=== PATIENT | male | born 1965 | race African-American/Black ===

== ENCOUNTER 2016-09-05 20:29 | Inpatient (IN) | payer MEDICAID, OTHER ==
[~2016-09-05] VITALS: Ht 121.9 cm; Wt 57.2 kg
[~2016-09-05 20:29] MED LIST: VIC GT
[2016-09-05] MEDS ORDERED: NITROGLYCERIN OINT 1GM/INCH UDPKT TD STA (22:01)
[2016-09-05] MEDS ORDERED: ASPIRIN 325MG TABLET PO ONE (22:15)
[2016-09-05 23:02] LABS: BASOPHILS % 0.8 % (0.0-2.0); EOSINOPHILS % 2.2 % (0.0-5.0); HEMATOCRIT. 39.5 % (42.0-52.0); HEMOGLOBIN. 12.9 g/dL (14.0-18.0); LYMPHOCYTES % 17.2 % (20.0-50.0); MEAN CORPUSCULAR HEMOGLOBIN 30.5 pg (28.0-32.0); MEAN CORPUSCULAR VOLUME 93.3 fL (80.0-94.0); MEAN PLATELET VOLUME 7.3 fl (7.4-10.4); MONOCYTES % 10.6 % (2.0-8.0); NEUTROPHILS % 69.2 % (40.0-76.0); PLATELET 136 x1000/uL (130-400); RED BLOOD CELL COUNT 4.24 mill/uL (4.7-6.1); RED CELL DISTRIBUTION WIDTH 18.1 % (11.6-14.6)
[2016-09-05] MEDS ORDERED: ENOXAPARIN 40MG/0.4ML SYR SUBCUT SCH (23:30)
[2016-09-05] MEDS ORDERED: MAGNESIUM/ALUMINUM HYDROXIDE/SIMETHICONE 30ML UDC PO PRN (23:30)
[2016-09-05] MEDS ORDERED: IPRATROPIUM/ALBUTEROL 0.5-3(2.5)MG/3ML NEB INH PRN (23:30)
[2016-09-05] MEDS ORDERED: HYDROCODONE/APAP 7.5/325MG 1 TAB TABLET PO PRN (23:30)
[2016-09-05] MEDS ORDERED: GUAIFENESIN 200MG/10ML SUGAR FREE UDC PO PRN (23:30)
[2016-09-05] MEDS ORDERED: DOCUSATE SODIUM 100MG CAPSULE PO PRN (23:30)
[2016-09-05] MEDS ORDERED: CLONIDINE 0.1MG TABLET PO PRN (23:30)
[2016-09-05] MEDS ORDERED: NA PHOS,M-B/NA PHOS,DI-BA ENEMA 118ML PR PRN (23:30)
[2016-09-05] MEDS ORDERED: LORAZEPAM 2MG/ML CPJ IV PRN (23:30)
[2016-09-06] LABS: INR 1.1; PARTIAL THROMBOPLASTIN TIME 35.8 sec (24.0-34.0); PROTHROMBIN TIME 11.9 sec
[2016-09-06 00:04] LABS: CARBON DIOXIDE 25 mEq/L (21-32); CHLORIDE 96 mEq/L (98-107)
[2016-09-06 00:05] LABS: TROPONIN I < 0.02 ng/mL (0.00-0.04)
[2016-09-06 00:45] LABS: GLUCOSE URINE NEGATIVE (NEGATIVE); KETONES URINE TRACE (NEGATIVE); LEUKOCYTE ESTERASE URINE 3+ (NEGATIVE); NITRITE URINE POSITIVE (NEGATIVE); OCCULT BLOOD URINE 3+ (NEGATIVE); PH URINE 7.5 (4.5-8.0); PROTEIN URINE 4+ (NEGATIVE)
[2016-09-06 00:49] LABS: CLARITY URINE CLOUDY (CLEAR); COLOR URINE BLOODY (YELLOW)
[2016-09-06] MEDS ORDERED: CEFTRIAXONE 1 G PREMIX 50 ML IV ONE (01:30)
[2016-09-06] MEDS: DIPHENHYDRAMINE 50MG/ML VIAL IV PRN (01:59)
[2016-09-06] MEDS: ONDANSETRON HCL 4MG/2ML VIAL IV PRN (07:12)
[2016-09-06 08:22] LABS: BASOPHILS % 0.5 % (0.0-2.0); EOSINOPHILS % 1.4 % (0.0-5.0); HEMATOCRIT. 39.4 % (42.0-52.0); HEMOGLOBIN. 12.5 g/dL (14.0-18.0); MEAN CORPUSCULAR HEMOGLOBIN 30.2 pg (28.0-32.0); MEAN CORPUSCULAR VOLUME 95.4 fL (80.0-94.0); NEUTROPHILS % 75.1 % (40.0-76.0); RED BLOOD CELL COUNT 4.13 mill/uL (4.7-6.1); RED CELL DISTRIBUTION WIDTH 17.7 % (11.6-14.6)
[2016-09-06] MEDS ORDERED: MIDODRINE HCL 2.5MG TABLET PO SCH (08:30)
[2016-09-06 08:44] LABS: CARBON DIOXIDE 26 mEq/L (21-32); CHLORIDE 95 mEq/L (98-107); HDL CHOLESTEROL 38 mg/dL (40-59); LDL CHOLESTEROL 66 mg/dL (5-100); T4 FREE 0.93 ng/dL (0.76-1.46)
[2016-09-06] MEDS ORDERED: ASPIRIN 81MG EC TABLET PO SCH (09:00)
[2016-09-06] MEDS: ACETAMINOPHEN 325MG TABLET PO PRN (10:04)
[2016-09-06 10:42] LABS: T4 FREE 0.91 ng/dL (0.76-1.46)
[2016-09-06 11:30] VITALS: BP 92/55
[2016-09-06] MEDS: ENOXAPARIN 30MG/0.3ML SYR SUBCUT SCH (14:16)
[2016-09-06] MEDS: ASPIRIN 81MG TABLET PO SCH (14:16)
[2016-09-06 15:53] LABS: BG BASE EXCESS -2.2 mmol/L (-2.0-2.0); BG CARBOXYHEMOGLOBIN 1.1 % (0.5-1.5); BG HCO3 ACT 26.8 mmol/L (22.0-26.0); BG METHEMOGLOBIN 0.6 % (0.0-1.5); BG OXYHEMOGLOBIN 96.3 % (94.0-97.0); BG PCO2 67.4 mmHg (35.0-45.0); BG PH 7.218 (7.350-7.450); BG PO2 137.8 mmHg (75.0-100.0); BG SAMPLE SITE LEFT BRACHIAL; BG TOTAL HEMOGLOBIN 12.9 g/dL (12.0-18.0); BG VENT MODE NASAL CANNULA
[2016-09-06] MEDS ORDERED: LEVOFLOXACIN 500MG PREMIX 100 ML IV NR (17:30)
[2016-09-06 20:00] VITALS: BP 91/64
[2016-09-06] MEDS: IPRATROPIUM/ALBUTEROL 0.5-3(2.5)MG/3ML NEB HHN SCH (22:09)
[2016-09-06] MEDS ORDERED: SODIUM CHLORIDE 0.9% 500 ML IV ONE (23:00)
[2016-09-06 23:45] LABS: CREATINE KINASE MB FRACTION < 0.5 ng/mL (0.5-3.6); TROPONIN I < 0.02 ng/mL (0.00-0.04)
[2016-09-06 23:47] LABS: CREATINE KINASE 52 IU/L (39-308)
[2016-09-07] VITALS (26 sets, daily range): BP systolic 72–109; BP diastolic 35–60
[2016-09-07] MEDS: IPRATROPIUM/ALBUTEROL 0.5-3(2.5)MG/3ML NEB HHN SCH ×4 (03:23→20:14)
[2016-09-07 07:55] LABS: CREATINE KINASE MB FRACTION 1.2 ng/mL (0.5-3.6); PHOSPHORUS 7.9 mg/dL (2.5-4.9); TROPONIN I 0.07 ng/mL (0.00-0.04)
[2016-09-07] MEDS: ASPIRIN 81MG TABLET PO SCH (08:48)
[2016-09-07] MEDS: ENOXAPARIN 30MG/0.3ML SYR SUBCUT SCH (08:48)
[2016-09-07 08:54] LABS: HEMATOCRIT. 33.7 % (42.0-52.0); HEMOGLOBIN. 10.6 g/dL (14.0-18.0); MEAN CORPUSCULAR HEMOGLOBIN 29.9 pg (28.0-32.0); MEAN PLATELET VOLUME 7.9 fl (7.4-10.4); PLATELET 121 x1000/uL (130-400); RED BLOOD CELL COUNT 3.54 mill/uL (4.7-6.1); RED CELL DISTRIBUTION WIDTH 17.6 % (11.6-14.6)
[2016-09-07 09:04] LABS: HEPATITIS A AB IGM NEGATIVE (NEGATIVE); HEPATITIS B CORE AB IGM NEGATIVE; HEPATITIS B SURFACE ANTIGEN NEGATIVE
[2016-09-07 10:05] LABS: NEUTROPHILS % 73.6 % (40.0-76.0)
[2016-09-07 10:06] LABS: BASOPHILS % 0.7 % (0.0-2.0); EOSINOPHILS % 2.1 % (0.0-5.0); LYMPHOCYTES % 12.4 % (20.0-50.0); MONOCYTES % 11.2 % (2.0-8.0)
[2016-09-07] MEDS ORDERED: SODIUM CHLORIDE 0.9% 500 ML IV NR (17:00)
[2016-09-07 18:16] LABS: BG CARBOXYHEMOGLOBIN 0.2 % (0.5-1.5); BG DEOXYHEMOGLOBIN 7.8 % (0.0-5.0); BG FRACTION INSPIRED OXYGEN 21; BG METHEMOGLOBIN 1.5 % (0.0-1.5); BG OXYGEN SATURATION 92.1 % (92.0-98.5); BG OXYHEMOGLOBIN 90.5 % (94.0-97.0); BG PCO2 49.3 mmHg (35.0-45.0); BG PH 7.268 (7.350-7.450); BG SAMPLE SITE LEFT BRACHIAL; BG VENT MODE ROOM AIR
[2016-09-07 20:53] LABS: CREATINE KINASE MB FRACTION 1.4 ng/mL (0.5-3.6); TROPONIN I 0.16 ng/mL (0.00-0.04)
[2016-09-07] MEDS: ONDANSETRON HCL 4MG/2ML VIAL IV PRN (21:47)
[2016-09-07 23:05] LABS: BG BASE EXCESS -3.8 mmol/L (-2.0-2.0); BG CARBOXYHEMOGLOBIN 0.9 % (0.5-1.5); BG DEOXYHEMOGLOBIN 1.4 % (0.0-5.0); BG FRACTION INSPIRED OXYGEN 30; BG METHEMOGLOBIN 0.6 % (0.0-1.5); BG OXYGEN SATURATION 98.6 % (92.0-98.5); BG OXYHEMOGLOBIN 97.1 % (94.0-97.0); BG PCO2 49.6 mmHg (35.0-45.0); BG PH 7.284 (7.350-7.450); BG PO2 142.7 mmHg (75.0-100.0); BG SAMPLE SITE RIGHT RADIAL; BG TOTAL HEMOGLOBIN 11.3 g/dL (12.0-18.0); BG VENT MODE MASK - BIPAP
[2016-09-07] MEDS ORDERED: SODIUM BICARBONATE 8.4% 1 MEQ/ML 50ML SYR IV ONE (23:30)
[2016-09-07] MEDS: PHENYLEPHRINE 20 MG in DEXT 5% WATER 248 ML IV PRN (23:52)
[2016-09-08] VITALS (84 sets, daily range): BP systolic 77–136; BP diastolic 31–94
[2016-09-08] MEDS: DIPHENHYDRAMINE 50MG/ML VIAL IV PRN ×2 (00:25→19:29)
[2016-09-08] MEDS: IPRATROPIUM/ALBUTEROL 0.5-3(2.5)MG/3ML NEB HHN SCH ×4 (01:50→20:36)
[2016-09-08] MEDS: PHENYLEPHRINE 20 MG in DEXT 5% WATER 248 ML IV PRN ×2 (08:35→21:18)
[2016-09-08 10:48] LABS: BASOPHILS % 0.8 % (0.0-2.0); EOSINOPHILS % 3.7 % (0.0-5.0); HEMATOCRIT. 30.6 % (42.0-52.0); HEMOGLOBIN. 9.5 g/dL (14.0-18.0); LYMPHOCYTES % 17.4 % (20.0-50.0); MEAN CORPUSCULAR HEMOGLOBIN 29.4 pg (28.0-32.0); MEAN CORPUSCULAR VOLUME 94.6 fL (80.0-94.0); MEAN PLATELET VOLUME 7.3 fl (7.4-10.4); MONOCYTES % 9.6 % (2.0-8.0); NEUTROPHILS % 68.5 % (40.0-76.0); PLATELET 93 x1000/uL (130-400); RED BLOOD CELL COUNT 3.24 mill/uL (4.7-6.1); RED CELL DISTRIBUTION WIDTH 17.6 % (11.6-14.6)
[2016-09-08] MEDS: ASPIRIN 81MG TABLET PO SCH (11:37)
[2016-09-08] MEDS: ENOXAPARIN 30MG/0.3ML SYR SUBCUT SCH ×2 (11:38→11:41)
[2016-09-08] MEDS ORDERED: LEVOFLOXACIN 250MG PREMIX 50 ML IV SCH (18:00)
[2016-09-08] MEDS: HYDROMORPHONE HCL/PF 2MG/ML CPJ IV PRN (20:09)
[2016-09-09] VITALS (88 sets, daily range): BP systolic 80–147; BP diastolic 21–86
[2016-09-09] MEDS: IPRATROPIUM/ALBUTEROL 0.5-3(2.5)MG/3ML NEB HHN SCH ×4 (01:39→20:44)
[2016-09-09] MEDS: HYDROMORPHONE HCL/PF 2MG/ML CPJ IV PRN ×3 (01:55→18:47)
[2016-09-09 05:41] LABS: BASOPHILS % 1.2 % (0.0-2.0); EOSINOPHILS % 3.9 % (0.0-5.0); HEMOGLOBIN. 9.5 g/dL (14.0-18.0); LYMPHOCYTES % 22.6 % (20.0-50.0); MEAN CORPUSCULAR HEMOGLOBIN 29.4 pg (28.0-32.0); MEAN PLATELET VOLUME 8.6 fl (7.4-10.4); MONOCYTES % 11.7 % (2.0-8.0); NEUTROPHILS % 60.6 % (40.0-76.0); PLATELET 102 x1000/uL (130-400); RED BLOOD CELL COUNT 3.23 mill/uL (4.7-6.1); RED CELL DISTRIBUTION WIDTH 17.6 % (11.6-14.6)
[2016-09-09] MEDS: PHENYLEPHRINE 20 MG in DEXT 5% WATER 248 ML IV PRN (06:38)
[2016-09-09] MEDS: ASPIRIN 81MG TABLET PO SCH (08:33)
[2016-09-09] MEDS ORDERED: LEVOFLOXACIN 500MG PREMIX 100 ML IV SCH (08:45)
[2016-09-09] MEDS ORDERED: VANCOMYCIN 1 G PREMIX 200 ML IV SCH (12:30)
[2016-09-09] MEDS ORDERED: AMIKACIN 500MG in SODIUM CHLORIDE 0.9% 100ML IV SCH (15:00)
[2016-09-09] MEDS: MIDODRINE HCL 5MG TABLET PO SCH ×2 (15:26→17:22)
[2016-09-09] MEDS ORDERED: SEVELAMER CARBONATE 800 MG TABLET PO SCH (18:20)
[2016-09-09] MEDS: EPOETIN ALFA 10000UNITS/ML VIAL SUBCUT SCH (20:19)
[2016-09-09] MEDS: SEVELAMER CARBONATE 800 MG TABLET PO SCH (20:35)
[2016-09-10] VITALS (36 sets, daily range): BP systolic 58–146; BP diastolic 38–88
[2016-09-10] MEDS: HYDROMORPHONE HCL/PF 2MG/ML CPJ IV PRN ×4 (01:41→22:08)
[2016-09-10] MEDS: IPRATROPIUM/ALBUTEROL 0.5-3(2.5)MG/3ML NEB HHN SCH ×4 (02:31→20:51)
[2016-09-10 08:57] LABS: BASOPHILS % 0.8 % (0.0-2.0); EOSINOPHILS % 3.3 % (0.0-5.0); HEMATOCRIT. 30.9 % (42.0-52.0); HEMOGLOBIN. 9.5 g/dL (14.0-18.0); LYMPHOCYTES % 20.9 % (20.0-50.0); MEAN CORPUSCULAR HEMOGLOBIN 29.6 pg (28.0-32.0); MEAN CORPUSCULAR VOLUME 96.3 fL (80.0-94.0); MEAN PLATELET VOLUME 7.1 fl (7.4-10.4); MONOCYTES % 14.2 % (2.0-8.0); NEUTROPHILS % 60.8 % (40.0-76.0); PLATELET 78 x1000/uL (130-400); RED BLOOD CELL COUNT 3.21 mill/uL (4.7-6.1); RED CELL DISTRIBUTION WIDTH 17.2 % (11.6-14.6)
[2016-09-10] MEDS: SEVELAMER CARBONATE 800 MG TABLET PO SCH ×2 (08:57→18:39)
[2016-09-10] MEDS: ASPIRIN 81MG TABLET PO SCH (08:58)
[2016-09-10] MEDS: MIDODRINE HCL 5MG TABLET PO SCH ×3 (08:58→18:38)
[2016-09-10] MEDS: ONDANSETRON HCL 4MG/2ML VIAL IV PRN (18:39)
[2016-09-11] VITALS (50 sets, daily range): BP systolic 39–146; BP diastolic 18–78
[2016-09-11] MEDS: IPRATROPIUM/ALBUTEROL 0.5-3(2.5)MG/3ML NEB HHN SCH ×4 (00:52→20:07)
[2016-09-11 06:01] LABS: BASOPHILS % 1.2 % (0.0-2.0); EOSINOPHILS % 3.2 % (0.0-5.0); HEMATOCRIT. 27.3 % (42.0-52.0); HEMOGLOBIN. 8.5 g/dL (14.0-18.0); LYMPHOCYTES % 20.8 % (20.0-50.0); MEAN CORPUSCULAR HEMOGLOBIN 29.5 pg (28.0-32.0); MEAN CORPUSCULAR VOLUME 94.7 fL (80.0-94.0); NEUTROPHILS % 62.8 % (40.0-76.0); PLATELET 94 x1000/uL (130-400); RED BLOOD CELL COUNT 2.89 mill/uL (4.7-6.1); RED CELL DISTRIBUTION WIDTH 17.1 % (11.6-14.6)
[2016-09-11] MEDS: DIPHENHYDRAMINE 50MG/ML VIAL IV PRN (08:39)
[2016-09-11] MEDS: SEVELAMER CARBONATE 800 MG TABLET PO SCH ×2 (08:39→18:23)
[2016-09-11] MEDS: ASPIRIN 81MG TABLET PO SCH (08:39)
[2016-09-11] MEDS: PHENYLEPHRINE 20 MG in DEXT 5% WATER 248 ML IV PRN (09:44)
[2016-09-11] MEDS: MIDODRINE HCL 5MG TABLET PO SCH ×2 (13:42→18:23)
[2016-09-11] MEDS: HYDROCODONE/ACETAMINOPHEN 5/325MG TABLET PO PRN (15:33)
[2016-09-11] MEDS: EPOETIN ALFA 10000UNITS/ML VIAL SUBCUT SCH (21:05)
[2016-09-12] VITALS (26 sets, daily range): BP systolic 67–148; BP diastolic 33–85
[2016-09-12] MEDS: IPRATROPIUM/ALBUTEROL 0.5-3(2.5)MG/3ML NEB HHN SCH ×4 (02:08→20:49)
[2016-09-12] MEDS: HYDROCODONE/ACETAMINOPHEN 5/325MG TABLET PO PRN (04:00)
[2016-09-12 05:21] LABS: BASOPHILS % 1.1 % (0.0-2.0); EOSINOPHILS % 4.1 % (0.0-5.0); HEMATOCRIT. 26.9 % (42.0-52.0); HEMOGLOBIN. 8.4 g/dL (14.0-18.0); LYMPHOCYTES % 18.5 % (20.0-50.0); MEAN CORPUSCULAR HEMOGLOBIN 29.7 pg (28.0-32.0); MEAN CORPUSCULAR VOLUME 95.6 fL (80.0-94.0); MEAN PLATELET VOLUME 7.5 fl (7.4-10.4); MONOCYTES % 13.5 % (2.0-8.0); NEUTROPHILS % 62.8 % (40.0-76.0); PLATELET 119 x1000/uL (130-400); RED BLOOD CELL COUNT 2.82 mill/uL (4.7-6.1)
[2016-09-12] MEDS: MIDODRINE HCL 5MG TABLET PO SCH ×3 (09:47→17:55)
[2016-09-12] MEDS: SEVELAMER CARBONATE 800 MG TABLET PO SCH ×3 (09:48→20:26)
[2016-09-12] MEDS: ASPIRIN 81MG TABLET PO SCH (10:02)
[2016-09-13] VITALS (7 sets, daily range): BP systolic 93–115; BP diastolic 51–66
[2016-09-13] MEDS: IPRATROPIUM/ALBUTEROL 0.5-3(2.5)MG/3ML NEB HHN SCH ×4 (01:00→20:30)
[2016-09-13] MEDS: MIDODRINE HCL 5MG TABLET PO SCH ×3 (06:54→17:41)
[2016-09-13] MEDS: SEVELAMER CARBONATE 800 MG TABLET PO SCH ×2 (07:40→17:41)
[2016-09-13] MEDS: DIPHENHYDRAMINE 50MG/ML VIAL IV PRN (08:58)
[2016-09-13] MEDS: ASPIRIN 81MG TABLET PO SCH (12:48)
[2016-09-13] MEDS: EPOETIN ALFA 10000UNITS/ML VIAL SUBCUT SCH (21:08)
[2016-09-13] MEDS: HYDROCODONE/APAP 7.5/325MG 1 TAB TABLET PO PRN (21:14)
[2016-09-13] MEDS: DIPHENHYDRAMINE 50MG/ML VIAL IM PRN (21:22)
[2016-09-14] VITALS (70 sets, daily range): BP systolic 52–180; BP diastolic 21–119
[2016-09-14] MEDS: IPRATROPIUM/ALBUTEROL 0.5-3(2.5)MG/3ML NEB HHN SCH ×4 (02:05→19:48)
[2016-09-14] MEDS: ONDANSETRON HCL 4MG/2ML VIAL IV PRN ×2 (02:25→13:15)
[2016-09-14] MEDS: DIPHENHYDRAMINE 50MG/ML VIAL IM PRN ×2 (02:26→08:47)
[2016-09-14] MEDS: MIDODRINE HCL 5MG TABLET PO SCH ×3 (08:46→17:00)
[2016-09-14] MEDS: ASPIRIN 81MG TABLET PO SCH (08:47)
[2016-09-14] MEDS: SEVELAMER CARBONATE 800 MG TABLET PO SCH ×2 (08:47→18:08)
[2016-09-14] MEDS ORDERED: AMIODARONE HCL 150 MG in DEXT 5% WATER 100 ML IV ONE (09:45)
[2016-09-14 10:26] LABS: BASOPHILS % 0.6 % (0.0-2.0); EOSINOPHILS % 0.2 % (0.0-5.0); MEAN CORPUSCULAR HEMOGLOBIN 30.3 pg (28.0-32.0); MEAN CORPUSCULAR VOLUME 101.1 fL (80.0-94.0); MEAN PLATELET VOLUME 8.2 fl (7.4-10.4); MONOCYTES % 7.9 % (2.0-8.0); NEUTROPHILS % 72.3 % (40.0-76.0); PLATELET 233 x1000/uL (130-400); RED CELL DISTRIBUTION WIDTH 18.3 % (11.6-14.6)
[2016-09-14] MEDS ORDERED: AMIODARONE HCL 900 MG in DEXT 5% WATER 482 ML IV PRN (10:30)
[2016-09-14 10:34] LABS: HEMATOCRIT. 17.2 % (42.0-52.0); HEMOGLOBIN. 5.2 g/dL (14.0-18.0)
[2016-09-14] MEDS ORDERED: DEXTROSE 50% WATER 50ML SYRINGE IV ONE (10:37)
[2016-09-14] MEDS ORDERED: SODIUM CHLORIDE 0.9% 250 ML IV ONE (10:45)
[2016-09-14] MEDS ORDERED: DEXTROSE 50% WATER 50ML SYRINGE IV NR (11:15)
[2016-09-14] MEDS ORDERED: OCTREOTIDE ACETATE 100 MCG/ML 1ML IV NR (11:30)
[2016-09-14] MEDS ORDERED: OCTREOTIDE ACETATE 50 MCG/ML 1ML IV NR (11:30)
[2016-09-14] MEDS: OCTREOTIDE 1,000 MCG in SODIUM CHLORIDE 0.9% 98 ML IV SCH (11:32)
[2016-09-14] MEDS: PANTOPRAZOLE 80 MG in SODIUM CHLORIDE 0.9% 100 ML IV SCH ×2 (11:32→20:05)
[2016-09-14] MEDS: PHENYLEPHRINE 40 MG in DEXT 5% WATER 246 ML IV PRN ×2 (11:33→20:08)
[2016-09-14 12:08] LABS: BG BASE EXCESS -10.8 mmol/L (-2.0-2.0); BG CARBOXYHEMOGLOBIN 0.4 % (0.5-1.5); BG DEOXYHEMOGLOBIN 0.2 % (0.0-5.0); BG HCO3 ACT 15.4 mmol/L (22.0-26.0); BG METHEMOGLOBIN 0.2 % (0.0-1.5); BG OXYGEN SATURATION 99.8 % (92.0-98.5); BG OXYHEMOGLOBIN 99.2 % (94.0-97.0); BG PCO2 35.8 mmHg (35.0-45.0); BG PH 7.252 (7.350-7.450); BG PO2 393.4 mmHg (75.0-100.0); BG SAMPLE SITE LEFT RADIAL; BG VENT MODE MASK - NRB
[2016-09-14] MEDS: DEXT 10% WATER 1,000 ML IV SCH (12:15)
[2016-09-14] MEDS ORDERED: DEXTROSE 10% WATER 1,000 ML IV SCH (12:15)
[2016-09-14] MEDS ORDERED: MORPHINE SULFATE 2 MG/ML CPJ (NOT FOR IM USE) IV NR (12:45)
[2016-09-14] MEDS ORDERED: SODIUM CHLORIDE 0.9% 10ML VIAL ONE (13:45)
[2016-09-14] MEDS ORDERED: SIMETHICONE 40 MG/0.6 ML 30ML ONE (13:45)
[2016-09-14] MEDS: HYDROMORPHONE HCL/PF 2MG/ML CPJ IV PRN ×2 (17:05→21:34)
[2016-09-15] VITALS (109 sets, daily range): BP systolic 64–152; BP diastolic 27–91
[2016-09-15 00:26] LABS: BASOPHILS % 0.8 % (0.0-2.0); EOSINOPHILS % 0.4 % (0.0-5.0); HEMOGLOBIN. 8.3 g/dL (14.0-18.0); LYMPHOCYTES % 15.6 % (20.0-50.0); MEAN CORPUSCULAR HEMOGLOBIN 30.2 pg (28.0-32.0); MEAN PLATELET VOLUME 8.1 fl (7.4-10.4); MONOCYTES % 8.6 % (2.0-8.0); NEUTROPHILS % 74.6 % (40.0-76.0); PLATELET 142 x1000/uL (130-400); RED BLOOD CELL COUNT 2.76 mill/uL (4.7-6.1); RED CELL DISTRIBUTION WIDTH 16.4 % (11.6-14.6)
[2016-09-15] MEDS ORDERED: DEXTROSE 50% WATER 50ML SYRINGE IV NR (01:00)
[2016-09-15] MEDS ORDERED: INSULIN REGULAR (HUMULIN R) UD 100 UNITS/ML SYR IV NR (01:30)
[2016-09-15] MEDS: IPRATROPIUM/ALBUTEROL 0.5-3(2.5)MG/3ML NEB HHN SCH ×5 (02:38→20:56)
[2016-09-15] MEDS: OCTREOTIDE 1,000 MCG in SODIUM CHLORIDE 0.9% 98 ML IV SCH (04:13)
[2016-09-15] MEDS: PANTOPRAZOLE 80 MG in SODIUM CHLORIDE 0.9% 100 ML IV SCH ×2 (06:55→17:27)
[2016-09-15] MEDS: HYDROMORPHONE HCL/PF 2MG/ML CPJ IV PRN ×3 (06:57→20:11)
[2016-09-15] MEDS: DIPHENHYDRAMINE 50MG/ML VIAL IV PRN (08:11)
[2016-09-15] MEDS: SEVELAMER CARBONATE 800 MG TABLET PO SCH ×2 (08:20→18:00)
[2016-09-15] MEDS: MIDODRINE HCL 5MG TABLET PO SCH ×3 (08:24→17:00)
[2016-09-15] MEDS: DEXT 10% WATER 1,000 ML IV SCH (12:40)
[2016-09-15 14:14] LABS: BASOPHILS % 0.9 % (0.0-2.0); EOSINOPHILS % 1.5 % (0.0-5.0); HEMATOCRIT. 22.8 % (42.0-52.0); HEMOGLOBIN. 7.6 g/dL (14.0-18.0); LYMPHOCYTES % 12.3 % (20.0-50.0); MEAN CORPUSCULAR HEMOGLOBIN 29.7 pg (28.0-32.0); MEAN CORPUSCULAR VOLUME 89.5 fL (80.0-94.0); MEAN PLATELET VOLUME 7.5 fl (7.4-10.4); NEUTROPHILS % 78.3 % (40.0-76.0); PLATELET 139 x1000/uL (130-400); RED BLOOD CELL COUNT 2.55 mill/uL (4.7-6.1); RED CELL DISTRIBUTION WIDTH 16.4 % (11.6-14.6)
[2016-09-15] MEDS ORDERED: FENTANYL CITRATE/PF 50MCG/ML 2ML VIAL ONE (15:17)
[2016-09-15] MEDS ORDERED: MIDAZOLAM HCL 5 MG/5 ML VIAL ONE (15:18)
[2016-09-15] MEDS ORDERED: FENTANYL CITRATE/PF 50MCG/ML 2ML VIAL IV PRN (15:52)
[2016-09-15] MEDS ORDERED: MIDAZOLAM HCL 5 MG/5 ML VIAL IV PRN (15:52)
[2016-09-15] MEDS ORDERED: FENTANYL CITRATE/PF 50MCG/ML 2ML VIAL IV ONE (15:56)
[2016-09-15] MEDS ORDERED: SORBITOL 70% SOLN 30ML PO NR ×2 (16:09→20:00)
[2016-09-15] MEDS: PHENYLEPHRINE 40 MG in DEXT 5% WATER 246 ML IV PRN (17:27)
[2016-09-15] MEDS: ONDANSETRON HCL 4MG/2ML VIAL IV PRN (21:51)
[2016-09-16] VITALS (144 sets, daily range): BP systolic 41–170; BP diastolic 18–139
[2016-09-16] MEDS: HYDROMORPHONE HCL/PF 2MG/ML CPJ IV PRN ×2 (00:15→04:05)
[2016-09-16] MEDS: IPRATROPIUM/ALBUTEROL 0.5-3(2.5)MG/3ML NEB HHN SCH ×4 (00:34→20:46)
[2016-09-16] MEDS: OCTREOTIDE 1,000 MCG in SODIUM CHLORIDE 0.9% 98 ML IV SCH ×2 (04:02→23:14)
[2016-09-16] MEDS: ONDANSETRON HCL 4MG/2ML VIAL IV PRN (04:03)
[2016-09-16] MEDS: PANTOPRAZOLE 80 MG in SODIUM CHLORIDE 0.9% 100 ML IV SCH ×3 (04:05→23:14)
[2016-09-16 05:40] LABS: HEMATOCRIT. 36.1 % (42.0-52.0); HEMOGLOBIN. 12.1 g/dL (14.0-18.0); MEAN CORPUSCULAR HEMOGLOBIN 29.8 pg (28.0-32.0); MEAN CORPUSCULAR VOLUME 88.6 fL (80.0-94.0); MEAN PLATELET VOLUME 7.4 fl (7.4-10.4); PLATELET 174 x1000/uL (130-400); RED BLOOD CELL COUNT 4.07 mill/uL (4.7-6.1); RED CELL DISTRIBUTION WIDTH 16.8 % (11.6-14.6)
[2016-09-16] MEDS: PHENYLEPHRINE 40 MG in DEXT 5% WATER 246 ML IV PRN ×5 (06:17→23:13)
[2016-09-16 06:55] LABS: BG BASE EXCESS -10.1 mmol/L (-2.0-2.0); BG CARBOXYHEMOGLOBIN 0.7 % (0.5-1.5); BG DEOXYHEMOGLOBIN 1.7 % (0.0-5.0); BG FRACTION INSPIRED OXYGEN 40; BG HCO3 ACT 17.9 mmol/L (22.0-26.0); BG METHEMOGLOBIN 0.4 % (0.0-1.5); BG OXYGEN SATURATION 98.3 % (92.0-98.5); BG OXYHEMOGLOBIN 97.2 % (94.0-97.0); BG PCO2 47.4 mmHg (35.0-45.0); BG PH 7.194 (7.350-7.450); BG SAMPLE SITE LEFT RADIAL; BG TOTAL HEMOGLOBIN 13.3 g/dL (12.0-18.0); BG VENT MODE MASK - SIMPLE
[2016-09-16] MEDS ORDERED: SODIUM BICARBONATE 8.4% 1 MEQ/ML 50ML SYR IV ONE (07:26)
[2016-09-16] MEDS: SEVELAMER CARBONATE 800 MG TABLET PO SCH ×2 (08:20→18:20)
[2016-09-16 08:24] LABS: NUCLEATED RED BLOOD CELLS 3 /100 WBC; PLATELET ESTIMATE NORMAL
[2016-09-16 08:47] LABS: BG BASE EXCESS -2.8 mmol/L (-2.0-2.0); BG CARBOXYHEMOGLOBIN 0.1 % (0.5-1.5); BG DEOXYHEMOGLOBIN 0.8 % (0.0-5.0); BG FRACTION INSPIRED OXYGEN 100; BG HCO3 ACT 24.8 mmol/L (22.0-26.0); BG METHEMOGLOBIN 0.4 % (0.0-1.5); BG OXYGEN SATURATION 99.2 % (92.0-98.5); BG OXYHEMOGLOBIN 98.7 % (94.0-97.0); BG PCO2 55.4 mmHg (35.0-45.0); BG PH 7.268 (7.350-7.450); BG PO2 403.3 mmHg (75.0-100.0); BG SAMPLE SITE RIGHT RADIAL; BG TIDAL VOLUME(mL) 500 mL; BG TOTAL HEMOGLOBIN 12.5 g/dL (12.0-18.0); BG VENT MODE VENT - A/C; BG VENT RATE 12 set
[2016-09-16] MEDS ORDERED: SODIUM BICARBONATE 100 MEQ in DEXTROSE 5% WATER 1,000 ML IV SCH (09:00)
[2016-09-16] MEDS: MIDODRINE HCL 5MG TABLET PO SCH ×3 (09:00→16:28)
[2016-09-16 09:24] LABS: AMMONIA 49 uMol/L (<32)
[2016-09-16] MEDS: MEROPENEM 1,000 MG in SODIUM CHLORIDE 0.9% 100 ML IV SCH ×2 (09:32→20:19)
[2016-09-16] MEDS: METRONIDAZOLE 500 MG PREMIX 100 ML IV SCH ×2 (09:32→20:19)
[2016-09-16 12:16] LABS: BG BASE EXCESS -3.9 mmol/L (-2.0-2.0); BG CARBOXYHEMOGLOBIN 0.3 % (0.5-1.5); BG DEOXYHEMOGLOBIN 2.3 % (0.0-5.0); BG FRACTION INSPIRED OXYGEN 50; BG HCO3 ACT 21.1 mmol/L (22.0-26.0); BG METHEMOGLOBIN 0.3 % (0.0-1.5); BG OXYGEN SATURATION 97.7 % (92.0-98.5); BG OXYHEMOGLOBIN 97.1 % (94.0-97.0); BG PCO2 38.1 mmHg (35.0-45.0); BG PH 7.361 (7.350-7.450); BG PO2 108.7 mmHg (75.0-100.0); BG SAMPLE SITE LEFT RADIAL; BG TIDAL VOLUME(mL) 550 mL; BG TOTAL HEMOGLOBIN 12.2 g/dL (12.0-18.0); BG VENT MODE VENT - A/C; BG VENT RATE 16 set
[2016-09-16] MEDS: PROPOFOL 10MG/ML 100ML 100 ML IV PRN ×2 (14:03→22:02)
[2016-09-16] MEDS ORDERED: STERILE WATER FOR INJECTION 10ML VIAL ONE (14:37)
[2016-09-16] MEDS ORDERED: ETOMIDATE 2MG/ML 10ML VIAL IV ONE (14:37)
[2016-09-16] MEDS ORDERED: VECURONIUM BROMIDE 10 MG/VIAL IV ONE (14:37)
[2016-09-16] MEDS: NOREPINEPHRINE 16 MG in DEXT 5% WATER 234 ML IV PRN (16:00)
[2016-09-16] MEDS: HYDROCODONE/APAP 7.5/325MG 1 TAB TABLET PO PRN (20:13)
[2016-09-17] VITALS (143 sets, daily range): BP systolic 68–141; BP diastolic 28–111
[2016-09-17] MEDS: IPRATROPIUM/ALBUTEROL 0.5-3(2.5)MG/3ML NEB HHN SCH ×4 (01:49→19:40)
[2016-09-17] MEDS: PHENYLEPHRINE 40 MG in DEXT 5% WATER 246 ML IV PRN ×6 (03:22→22:20)
[2016-09-17] MEDS: NOREPINEPHRINE 16 MG in DEXT 5% WATER 234 ML IV PRN ×2 (05:41→17:04)
[2016-09-17 06:23] LABS: HEMATOCRIT. 32.6 % (42.0-52.0); HEMOGLOBIN. 11.2 g/dL (14.0-18.0); MEAN CORPUSCULAR HEMOGLOBIN 30.4 pg (28.0-32.0); MEAN CORPUSCULAR VOLUME 88.3 fL (80.0-94.0); MEAN PLATELET VOLUME 7.9 fl (7.4-10.4); PLATELET 82 x1000/uL (130-400); RED BLOOD CELL COUNT 3.69 mill/uL (4.7-6.1)
[2016-09-17] MEDS: PROPOFOL 10MG/ML 100ML 100 ML IV PRN (06:23)
[2016-09-17] MEDS: SEVELAMER CARBONATE 800 MG TABLET PO SCH ×2 (08:12→17:21)
[2016-09-17] MEDS: METRONIDAZOLE 500 MG PREMIX 100 ML IV SCH ×2 (08:12→21:52)
[2016-09-17] MEDS: MEROPENEM 1,000 MG in SODIUM CHLORIDE 0.9% 100 ML IV SCH ×2 (08:13→20:37)
[2016-09-17] MEDS: MIDODRINE HCL 5MG TABLET PO SCH ×3 (08:14→17:11)
[2016-09-17] MEDS: PANTOPRAZOLE 80 MG in SODIUM CHLORIDE 0.9% 100 ML IV SCH ×2 (08:30→18:24)
[2016-09-17] MEDS ORDERED: PROPOFOL 10MG/ML 100ML 100 ML IV PRN (09:45)
[2016-09-17 10:14] LABS: BG BASE EXCESS -2.5 mmol/L (-2.0-2.0); BG CARBOXYHEMOGLOBIN 0.3 % (0.5-1.5); BG DEOXYHEMOGLOBIN 1.4 % (0.0-5.0); BG METHEMOGLOBIN 0.5 % (0.0-1.5); BG OXYGEN SATURATION 98.6 % (92.0-98.5); BG OXYHEMOGLOBIN 97.8 % (94.0-97.0); BG PCO2 32.2 mmHg (35.0-45.0); BG PH 7.432 (7.350-7.450); BG PO2 148.2 mmHg (75.0-100.0); BG SAMPLE SITE LEFT BRACHIAL; BG TIDAL VOLUME(mL) 550 mL; BG TOTAL HEMOGLOBIN 11.7 g/dL (12.0-18.0); BG VENT MODE VENT - A/C; BG VENT RATE 16 set
[2016-09-17] MEDS: MORPHINE SULFATE 2 MG/ML CPJ (NOT FOR IM USE) IV PRN ×2 (10:30→14:17)
[2016-09-17] MEDS: ACETAMINOPHEN 325MG TABLET PO PRN ×2 (12:22→20:36)
[2016-09-17] MEDS: OCTREOTIDE 1,000 MCG in SODIUM CHLORIDE 0.9% 98 ML IV SCH (12:53)
[2016-09-17] MEDS: VANCOMYCIN HCL 1000 MG/20 ML ORAL PO SCH ×2 (12:54→17:11)
[2016-09-17] MEDS ORDERED: SODIUM ACETATE 100 MEQ in DEXTROSE 5% WATER 1,000 ML IV SCH (15:30)
[2016-09-17 17:50] LABS: PLATELET ESTIMATE DECREASED
[2016-09-18] VITALS (92 sets, daily range): BP systolic 61–125; BP diastolic 27–104
[2016-09-18] MEDS: VANCOMYCIN HCL 1000 MG/20 ML ORAL PO SCH ×4 (00:10→17:24)
[2016-09-18] MEDS: MORPHINE SULFATE 2 MG/ML CPJ (NOT FOR IM USE) IV PRN ×3 (00:10→23:48)
[2016-09-18] MEDS: NOREPINEPHRINE 16 MG in DEXT 5% WATER 234 ML IV PRN ×2 (02:08→16:58)
[2016-09-18] MEDS: PHENYLEPHRINE 80 MG in DEXT 5% WATER 500 ML IV PRN ×3 (02:46→18:24)
[2016-09-18] MEDS: PANTOPRAZOLE 80 MG in SODIUM CHLORIDE 0.9% 100 ML IV SCH ×2 (05:09→15:44)
[2016-09-18] MEDS ORDERED: DOPAMINE 400MG PREMIX 250 ML IV PRN (07:00)
[2016-09-18 07:27] LABS: HEMATOCRIT. 29.6 % (42.0-52.0); HEMOGLOBIN. 10.1 g/dL (14.0-18.0); MEAN CORPUSCULAR HEMOGLOBIN 29.9 pg (28.0-32.0); MEAN CORPUSCULAR VOLUME 87.8 fL (80.0-94.0); MEAN PLATELET VOLUME 8.3 fl (7.4-10.4); PLATELET 76 x1000/uL (130-400); RED BLOOD CELL COUNT 3.38 mill/uL (4.7-6.1); RED CELL DISTRIBUTION WIDTH 17.1 % (11.6-14.6)
[2016-09-18] MEDS: DEXTROSE 50% WATER 50ML SYRINGE IV PRN ×4 (08:00→21:45)
[2016-09-18] MEDS ORDERED: BLOOD SUGAR DIAGNOSTIC STRIP TEST SCH (08:00)
[2016-09-18] MEDS ORDERED: DEXT 5%/0.45% NACL 1000ML 1,000 ML IV SCH ×2 (08:15→09:30)
[2016-09-18 08:20] LABS: BG BASE EXCESS -3.1 mmol/L (-2.0-2.0); BG CARBOXYHEMOGLOBIN 0.3 % (0.5-1.5); BG DEOXYHEMOGLOBIN 1.2 % (0.0-5.0); BG FRACTION INSPIRED OXYGEN 40; BG HCO3 ACT 20.1 mmol/L (22.0-26.0); BG METHEMOGLOBIN 0.4 % (0.0-1.5); BG OXYGEN SATURATION 98.8 % (92.0-98.5); BG OXYHEMOGLOBIN 98.1 % (94.0-97.0); BG PH 7.444 (7.350-7.450); BG PO2 141.2 mmHg (75.0-100.0); BG SAMPLE SITE LEFT RADIAL; BG TIDAL VOLUME(mL) 550 mL; BG TOTAL HEMOGLOBIN 10.9 g/dL (12.0-18.0); BG VENT MODE VENT - A/C; BG VENT RATE 14 set
[2016-09-18] MEDS: SEVELAMER CARBONATE 800 MG TABLET PO SCH ×2 (08:34→18:25)
[2016-09-18] MEDS: MIDODRINE HCL 5MG TABLET PO SCH ×3 (08:34→16:54)
[2016-09-18] MEDS: METRONIDAZOLE 500 MG PREMIX 100 ML IV SCH (08:35)
[2016-09-18] MEDS: MEROPENEM 1,000 MG in SODIUM CHLORIDE 0.9% 100 ML IV SCH (08:35)
[2016-09-18] MEDS: IPRATROPIUM/ALBUTEROL 0.5-3(2.5)MG/3ML NEB HHN SCH ×3 (08:39→20:01)
[2016-09-18] MEDS: OCTREOTIDE 1,000 MCG in SODIUM CHLORIDE 0.9% 98 ML IV SCH (08:49)
[2016-09-18] MEDS: BLOOD SUGAR DIAGNOSTIC STRIP TEST SCH ×6 (08:54→21:40)
[2016-09-18] MEDS ORDERED: SODIUM POLYSTYRENE SULFONATE 15 G/60 ML BOT PO SCH (09:30)
[2016-09-18] MEDS ORDERED: DEXT IV SCH ×2 (11:00)
[2016-09-18] MEDS ORDERED: SODIUM ACETATE IV SCH ×2 (11:00)
[2016-09-18] MEDS ORDERED: NACL IV SCH ×2 (11:00)
[2016-09-18 11:23] LABS: PLATELET ESTIMATE DECREASED
[2016-09-18] MEDS: ACETAMINOPHEN 325MG TABLET PO PRN ×2 (14:30→23:59)
[2016-09-18] MEDS ORDERED: COLISTIMETHATE SODIUM 150 MG in SODIUM CHLORIDE 0.9% 100 ML IV SCH (15:30)
[2016-09-18] MEDS: TOTAL PARENTERAL NUTRITION 1,000 ML IV SCH (21:42)
[2016-09-18] MEDS: DIPHENHYDRAMINE 50MG/ML VIAL IV PRN (23:46)
[2016-09-19] VITALS (85 sets, daily range): BP systolic 80–133; BP diastolic 48–79
[2016-09-19] MEDS: VANCOMYCIN HCL 1000 MG/20 ML ORAL PO SCH ×4 (00:22→17:36)
[2016-09-19] MEDS: IPRATROPIUM/ALBUTEROL 0.5-3(2.5)MG/3ML NEB HHN SCH ×3 (01:56→20:44)
[2016-09-19] MEDS: LORAZEPAM 2MG/ML CPJ IV PRN ×2 (02:05→21:13)
[2016-09-19] MEDS: PANTOPRAZOLE 80 MG in SODIUM CHLORIDE 0.9% 100 ML IV SCH ×3 (02:07→21:13)
[2016-09-19] MEDS: PHENYLEPHRINE 80 MG in DEXT 5% WATER 500 ML IV PRN (02:33)
[2016-09-19 06:10] LABS: HEMATOCRIT. 29.5 % (42.0-52.0); HEMOGLOBIN. 10.1 g/dL (14.0-18.0); MEAN CORPUSCULAR HEMOGLOBIN 30.4 pg (28.0-32.0); MEAN CORPUSCULAR VOLUME 88.6 fL (80.0-94.0); MEAN PLATELET VOLUME 8.6 fl (7.4-10.4); PLATELET 67 x1000/uL (130-400); RED BLOOD CELL COUNT 3.33 mill/uL (4.7-6.1); RED CELL DISTRIBUTION WIDTH 17.3 % (11.6-14.6)
[2016-09-19] MEDS: OCTREOTIDE 1,000 MCG in SODIUM CHLORIDE 0.9% 98 ML IV SCH (07:00)
[2016-09-19 07:55] LABS: NUCLEATED RED BLOOD CELLS 1 /100 WBC
[2016-09-19 07:56] LABS: PLATELET ESTIMATE DECREASED
[2016-09-19 08:04] LABS: BG BASE EXCESS -2.9 mmol/L (-2.0-2.0); BG CARBOXYHEMOGLOBIN 0.3 % (0.5-1.5); BG DEOXYHEMOGLOBIN 1.6 % (0.0-5.0); BG FRACTION INSPIRED OXYGEN 40; BG HCO3 ACT 21.8 mmol/L (22.0-26.0); BG METHEMOGLOBIN 0.6 % (0.0-1.5); BG OXYGEN SATURATION 98.4 % (92.0-98.5); BG OXYHEMOGLOBIN 97.5 % (94.0-97.0); BG PCO2 37.5 mmHg (35.0-45.0); BG PH 7.383 (7.350-7.450); BG PO2 132.4 mmHg (75.0-100.0); BG SAMPLE SITE LEFT RADIAL; BG TIDAL VOLUME(mL) 550 mL; BG TOTAL HEMOGLOBIN 10.5 g/dL (12.0-18.0); BG VENT MODE VENT - A/C; BG VENT RATE 14 set
[2016-09-19] MEDS: MIDODRINE HCL 5MG TABLET PO SCH ×3 (08:56→17:32)
[2016-09-19] MEDS: SEVELAMER CARBONATE 800 MG TABLET PO SCH ×2 (08:57→17:36)
[2016-09-19] MEDS: MEROPENEM 1,000 MG in SODIUM CHLORIDE 0.9% 100 ML IV SCH (08:57)
[2016-09-19] MEDS: DEXTROSE 50% WATER 50ML SYRINGE IV PRN ×3 (08:58→17:37)
[2016-09-19] MEDS: BLOOD SUGAR DIAGNOSTIC STRIP TEST SCH ×4 (08:58→21:17)
[2016-09-19] MEDS: DEXT IV PRN ×2 (12:59)
[2016-09-19] MEDS: PHENYLEPHRINE IV PRN (12:59)
[2016-09-19] MEDS: NACL IV PRN ×2 (12:59)
[2016-09-19] MEDS: NOREPINEPHRINE IV PRN (12:59)
[2016-09-19] MEDS ORDERED: [UNRECOGNIZED DRUG - REMARK] XX SCH (14:45)
[2016-09-19] MEDS: SODIUM CHLORIDE 0.9% IV SCH (17:31)
[2016-09-19] MEDS: COLISTIMETHATE SODIUM IV SCH (17:31)
[2016-09-19] MEDS: MORPHINE SULFATE 2 MG/ML CPJ (NOT FOR IM USE) IV PRN ×2 (19:43→23:31)
[2016-09-19] MEDS: METRONIDAZOLE 500 MG PREMIX 100 ML IV SCH (21:13)
[2016-09-19] MEDS: FAT EMULSIONS 500 ML IV SCH (21:13)
[2016-09-19] MEDS: TOTAL PARENTERAL NUTRITION 1,000 ML IV SCH (21:14)
[2016-09-19] MEDS: DIPHENHYDRAMINE 50MG/ML VIAL IV PRN (23:31)
[2016-09-19] MEDS: ACETAMINOPHEN 325MG TABLET PO PRN (23:39)
[2016-09-20] VITALS (100 sets, daily range): BP systolic 73–140; BP diastolic 35–84
[2016-09-20] MEDS: VANCOMYCIN HCL 1000 MG/20 ML ORAL PO SCH ×4 (00:17→17:44)
[2016-09-20] MEDS: OCTREOTIDE 1,000 MCG in SODIUM CHLORIDE 0.9% 98 ML IV SCH (02:22)
[2016-09-20] MEDS: NACL IV PRN ×6 (02:23→20:55)
[2016-09-20] MEDS: DEXT IV PRN ×6 (02:23→20:55)
[2016-09-20] MEDS: PHENYLEPHRINE IV PRN ×3 (02:23→20:55)
[2016-09-20] MEDS: NOREPINEPHRINE IV PRN ×3 (04:07→20:54)
[2016-09-20] MEDS: PANTOPRAZOLE 80 MG in SODIUM CHLORIDE 0.9% 100 ML IV SCH (06:02)
[2016-09-20] MEDS: METRONIDAZOLE 500 MG PREMIX 100 ML IV SCH ×3 (06:02→21:19)
[2016-09-20] MEDS: ACETAMINOPHEN 325MG TABLET PO PRN (06:15)
[2016-09-20 07:39] LABS: HEMATOCRIT. 26.8 % (42.0-52.0); HEMOGLOBIN. 9.7 g/dL (14.0-18.0); MEAN CORPUSCULAR HEMOGLOBIN 31.9 pg (28.0-32.0); MEAN CORPUSCULAR VOLUME 88.2 fL (80.0-94.0); MEAN PLATELET VOLUME 8.8 fl (7.4-10.4); RED BLOOD CELL COUNT 3.04 mill/uL (4.7-6.1); RED CELL DISTRIBUTION WIDTH 17.8 % (11.6-14.6)
[2016-09-20 07:43] LABS: PLATELET 50 x1000/uL (130-400)
[2016-09-20] MEDS: SEVELAMER CARBONATE 800 MG TABLET PO SCH ×2 (08:20→18:20)
[2016-09-20] MEDS: MEROPENEM 1,000 MG in SODIUM CHLORIDE 0.9% 100 ML IV SCH (09:30)
[2016-09-20] MEDS: MIDODRINE HCL 5MG TABLET PO SCH ×3 (09:37→17:43)
[2016-09-20 10:16] LABS: BG BASE EXCESS -5.2 mmol/L (-2.0-2.0); BG CARBOXYHEMOGLOBIN 0.3 % (0.5-1.5); BG HCO3 ACT 19.7 mmol/L (22.0-26.0); BG METHEMOGLOBIN 0.3 % (0.0-1.5); BG OXYHEMOGLOBIN 97.4 % (94.0-97.0); BG PCO2 35.8 mmHg (35.0-45.0); BG PH 7.358 (7.350-7.450); BG PO2 122.9 mmHg (75.0-100.0); BG SAMPLE SITE LEFT RADIAL; BG TIDAL VOLUME(mL) 550 mL; BG TOTAL HEMOGLOBIN 10.4 g/dL (12.0-18.0); BG VENT MODE VENT - A/C; BG VENT RATE 14 set
[2016-09-20 10:49] LABS: NUCLEATED RED BLOOD CELLS 2 /100 WBC; PLATELET ESTIMATE MARKEDLY DECREASED
[2016-09-20] MEDS: BLOOD SUGAR DIAGNOSTIC STRIP TEST SCH ×2 (12:03→17:44)
[2016-09-20] MEDS: MORPHINE SULFATE 2 MG/ML CPJ (NOT FOR IM USE) IV PRN (18:48)
[2016-09-20] MEDS: IPRATROPIUM/ALBUTEROL 0.5-3(2.5)MG/3ML NEB HHN SCH (20:10)
[2016-09-20] MEDS: TOTAL PARENTERAL NUTRITION 1,000 ML IV SCH (21:18)
[2016-09-20] MEDS ORDERED: NOREPINEPHRINE 16 MG in DEXT 5% WATER 234 ML IV PRN (22:30)
[2016-09-21] VITALS (91 sets, daily range): BP systolic 69–143; BP diastolic 39–88
[2016-09-21] MEDS: VANCOMYCIN HCL 1000 MG/20 ML ORAL PO SCH ×4 (01:24→17:28)
[2016-09-21] MEDS: DEXTROSE 50% WATER 50ML SYRINGE IV PRN ×3 (01:50→18:09)
[2016-09-21] MEDS: IPRATROPIUM/ALBUTEROL 0.5-3(2.5)MG/3ML NEB HHN SCH ×4 (02:00→20:34)
[2016-09-21] MEDS: PHENYLEPHRINE 80 MG in SODIUM CHLORIDE 0.9% 500 ML IV PRN ×2 (05:22→16:10)
[2016-09-21] MEDS: METRONIDAZOLE 500 MG PREMIX 100 ML IV SCH ×3 (05:30→23:31)
[2016-09-21] MEDS: NOREPINEPHRINE 16 MG in DEXT 5% WATER 250 ML IV PRN ×2 (05:40→21:24)
[2016-09-21] MEDS: BLOOD SUGAR DIAGNOSTIC STRIP TEST SCH ×5 (06:39→23:25)
[2016-09-21 07:16] LABS: MEAN CORPUSCULAR HEMOGLOBIN 29.9 pg (28.0-32.0); MEAN CORPUSCULAR VOLUME 90.4 fL (80.0-94.0); MEAN PLATELET VOLUME 9.1 fl (7.4-10.4); RED BLOOD CELL COUNT 1.66 mill/uL (4.7-6.1); RED CELL DISTRIBUTION WIDTH 17.6 % (11.6-14.6)
[2016-09-21 07:18] LABS: PLATELET 15 x1000/uL (130-400)
[2016-09-21 07:53] LABS: BG BASE EXCESS -5.6 mmol/L (-2.0-2.0); BG CARBOXYHEMOGLOBIN 0.3 % (0.5-1.5); BG DEOXYHEMOGLOBIN 5.3 % (0.0-5.0); BG FRACTION INSPIRED OXYGEN 40; BG HCO3 ACT 20.3 mmol/L (22.0-26.0); BG METHEMOGLOBIN 0.6 % (0.0-1.5); BG OXYGEN SATURATION 94.7 % (92.0-98.5); BG OXYHEMOGLOBIN 93.8 % (94.0-97.0); BG PCO2 41.6 mmHg (35.0-45.0); BG PH 7.307 (7.350-7.450); BG PO2 77.4 mmHg (75.0-100.0); BG SAMPLE SITE LEFT RADIAL; BG TIDAL VOLUME(mL) 550 mL; BG TOTAL HEMOGLOBIN 9.3 g/dL (12.0-18.0); BG VENT MODE VENT - A/C; BG VENT RATE 14 set
[2016-09-21] MEDS: SODIUM CHLORIDE 0.9% IV SCH (08:28)
[2016-09-21] MEDS: COLISTIMETHATE SODIUM IV SCH (08:28)
[2016-09-21] MEDS ORDERED: FAMOTIDINE 20MG/2ML VIAL IV SCH (09:00)
[2016-09-21] MEDS: MIDODRINE HCL 5MG TABLET PO SCH ×3 (09:41→17:28)
[2016-09-21] MEDS: SEVELAMER CARBONATE 800 MG TABLET PO SCH ×2 (09:41→17:27)
[2016-09-21] MEDS: MEROPENEM 1,000 MG in SODIUM CHLORIDE 0.9% 100 ML IV SCH (09:42)
[2016-09-21 09:51] LABS: PLATELET ESTIMATE MARKEDLY DECREASED
[2016-09-21] MEDS: MORPHINE SULFATE 2 MG/ML CPJ (NOT FOR IM USE) IV PRN (15:05)
[2016-09-21] MEDS: LORAZEPAM 2MG/ML CPJ IV PRN (17:22)
[2016-09-21] MEDS ORDERED: AMIODARONE HCL 900 MG in DEXT 5% WATER 482 ML IV PRN (17:45)
[2016-09-21 19:53] LABS: HEMATOCRIT 39.9 % (42.0-52.0); HEMOGLOBIN 13.5 g/dL (14.0-18.0)
[2016-09-21] MEDS: TOTAL PARENTERAL NUTRITION 1,000 ML IV SCH (21:25)
[2016-09-21] MEDS ORDERED: POTASSIUM CHLORIDE INJ 40 MEQ in DEXT 5% WATER 250 ML IV NR (23:00)
[2016-09-22] VITALS (88 sets, daily range): BP systolic 91–166; BP diastolic 37–142
[2016-09-22] MEDS: VANCOMYCIN HCL 1000 MG/20 ML ORAL PO SCH ×4 (00:52→17:29)
[2016-09-22] MEDS: IPRATROPIUM/ALBUTEROL 0.5-3(2.5)MG/3ML NEB HHN SCH ×6 (02:24→20:09)
[2016-09-22] MEDS: BLOOD SUGAR DIAGNOSTIC STRIP TEST SCH ×4 (06:00→23:58)
[2016-09-22] MEDS: METRONIDAZOLE 500 MG PREMIX 100 ML IV SCH ×3 (06:08→21:21)
[2016-09-22 07:29] LABS: HEMATOCRIT. 35.2 % (42.0-52.0); HEMOGLOBIN. 12.1 g/dL (14.0-18.0); MEAN CORPUSCULAR HEMOGLOBIN 29.6 pg (28.0-32.0); MEAN CORPUSCULAR VOLUME 86.5 fL (80.0-94.0); MEAN PLATELET VOLUME 10.8 fl (7.4-10.4); RED BLOOD CELL COUNT 4.08 mill/uL (4.7-6.1); RED CELL DISTRIBUTION WIDTH 16.3 % (11.6-14.6)
[2016-09-22 07:40] LABS: PLATELET 33 x1000/uL (130-400)
[2016-09-22] MEDS: SEVELAMER CARBONATE 800 MG TABLET PO SCH ×2 (08:04→17:29)
[2016-09-22] MEDS: MEROPENEM 1,000 MG in SODIUM CHLORIDE 0.9% 100 ML IV SCH (08:05)
[2016-09-22] MEDS: MIDODRINE HCL 5MG TABLET PO SCH ×3 (08:05→17:29)
[2016-09-22] MEDS: PANTOPRAZOLE SODIUM 40 MG/VIAL IV SCH (08:05)
[2016-09-22] MEDS: ACETAMINOPHEN 325MG TABLET PO PRN (09:23)
[2016-09-22] MEDS: PHENYLEPHRINE 80 MG in SODIUM CHLORIDE 0.9% 500 ML IV PRN (09:24)
[2016-09-22] MEDS ORDERED: DEXT 5% WATER + KCL 40MEQ/L 250 ML IV SCH (10:15)
[2016-09-22 10:17] LABS: PLATELET ESTIMATE MARKEDLY DECREASED
[2016-09-22 10:38] LABS: BG BASE EXCESS -5.1 mmol/L (-2.0-2.0); BG CARBOXYHEMOGLOBIN 0.4 % (0.5-1.5); BG DEOXYHEMOGLOBIN 2.4 % (0.0-5.0); BG FRACTION INSPIRED OXYGEN 40; BG METHEMOGLOBIN 0.3 % (0.0-1.5); BG OXYGEN SATURATION 97.6 % (92.0-98.5); BG OXYHEMOGLOBIN 96.9 % (94.0-97.0); BG PO2 102.9 mmHg (75.0-100.0); BG SAMPLE SITE LEFT RADIAL; BG TIDAL VOLUME(mL) 550 mL; BG TOTAL HEMOGLOBIN 11.7 g/dL (12.0-18.0); BG VENT MODE VENT - A/C; BG VENT RATE 14 set
[2016-09-22] MEDS ORDERED: POTASSIUM CHLORIDE INJ 40 MEQ in DEXT 5% WATER 250 ML IV SCH (11:00)
[2016-09-22] MEDS ORDERED: LIDOCAINE HCL/PF 1% 2ML VIAL ONE (12:28)
[2016-09-22] MEDS: ACETYLCYSTEINE 100MG/ML 10% VIAL 4ML INH SCH ×2 (15:27→20:10)
[2016-09-22 16:08] LABS: HEMATOCRIT 30.8 % (42.0-52.0); HEMOGLOBIN 10.6 g/dL (14.0-18.0)
[2016-09-22] MEDS: COLISTIMETHATE SODIUM IV SCH (17:28)
[2016-09-22] MEDS: SODIUM CHLORIDE 0.9% IV SCH (17:28)
[2016-09-22] MEDS: TOTAL PARENTERAL NUTRITION 1,000 ML IV SCH (21:21)
[2016-09-22] MEDS: MORPHINE SULFATE 2 MG/ML CPJ (NOT FOR IM USE) IV PRN (21:35)
[2016-09-23] VITALS (93 sets, daily range): BP systolic 43–138; BP diastolic 20–85
[2016-09-23] MEDS: VANCOMYCIN HCL 1000 MG/20 ML ORAL PO SCH ×4 (00:32→18:01)
[2016-09-23] MEDS: IPRATROPIUM/ALBUTEROL 0.5-3(2.5)MG/3ML NEB HHN SCH ×5 (01:52→20:56)
[2016-09-23] MEDS: ACETYLCYSTEINE 100MG/ML 10% VIAL 4ML INH SCH ×5 (01:52→20:55)
[2016-09-23] MEDS: METRONIDAZOLE 500 MG PREMIX 100 ML IV SCH ×3 (05:26→21:34)
[2016-09-23] MEDS: BLOOD SUGAR DIAGNOSTIC STRIP TEST SCH ×3 (05:26→17:51)
[2016-09-23 05:46] LABS: BASOPHILS % 0.5 % (0.0-2.0); EOSINOPHILS % 1.9 % (0.0-5.0); HEMATOCRIT. 31.3 % (42.0-52.0); HEMOGLOBIN. 10.8 g/dL (14.0-18.0); LYMPHOCYTES % 11.3 % (20.0-50.0); MEAN CORPUSCULAR HEMOGLOBIN 30.1 pg (28.0-32.0); MEAN CORPUSCULAR VOLUME 87.8 fL (80.0-94.0); MEAN PLATELET VOLUME 9.5 fl (7.4-10.4); MONOCYTES % 6.1 % (2.0-8.0); NEUTROPHILS % 80.2 % (40.0-76.0); RED BLOOD CELL COUNT 3.57 mill/uL (4.7-6.1); RED CELL DISTRIBUTION WIDTH 16.9 % (11.6-14.6)
[2016-09-23 06:10] LABS: PLATELET 20 x1000/uL (130-400)
[2016-09-23] MEDS: MORPHINE SULFATE 2 MG/ML CPJ (NOT FOR IM USE) IV PRN (07:41)
[2016-09-23 08:08] LABS: PLATELET ESTIMATE MARKEDLY DECREASED
[2016-09-23] MEDS: SEVELAMER CARBONATE 800 MG TABLET PO SCH (08:20)
[2016-09-23] MEDS: MEROPENEM 1,000 MG in SODIUM CHLORIDE 0.9% 100 ML IV SCH (08:21)
[2016-09-23] MEDS: PANTOPRAZOLE SODIUM 40 MG/VIAL IV SCH (08:21)
[2016-09-23] MEDS: MIDODRINE HCL 5MG TABLET PO SCH ×3 (08:21→17:25)
[2016-09-23] MEDS ORDERED: POTASSIUM CHLORIDE INJ 40 MEQ in DEXT 5% WATER 250 ML IV SCH (09:00)
[2016-09-23 10:23] LABS: PHOSPHORUS 1.3 mg/dL (2.5-4.9)
[2016-09-23] MEDS ORDERED: SODIUM PHOS,M-BASIC-D-BASIC 15 MM in DEXT 5% WATER 245 ML IV NR (14:00)
[2016-09-23] MEDS: PHENYLEPHRINE 80 MG in SODIUM CHLORIDE 0.9% 500 ML IV PRN (17:25)
[2016-09-23] MEDS: FAT EMULSIONS 500 ML IV SCH (21:13)
[2016-09-23] MEDS: TOTAL PARENTERAL NUTRITION 1,000 ML IV SCH (21:13)
[2016-09-24] VITALS (98 sets, daily range): BP systolic 80–155; BP diastolic 50–105
[2016-09-24] MEDS: ACETYLCYSTEINE 100MG/ML 10% VIAL 4ML INH SCH ×6 (00:01→20:17)
[2016-09-24] MEDS: IPRATROPIUM/ALBUTEROL 0.5-3(2.5)MG/3ML NEB HHN SCH ×6 (00:01→20:17)
[2016-09-24] MEDS: VANCOMYCIN HCL 1000 MG/20 ML ORAL PO SCH ×4 (00:03→17:21)
[2016-09-24] MEDS: BLOOD SUGAR DIAGNOSTIC STRIP TEST SCH ×4 (00:03→17:30)
[2016-09-24] MEDS: COLISTIMETHATE SODIUM IV SCH (05:11)
[2016-09-24] MEDS: SODIUM CHLORIDE 0.9% IV SCH (05:11)
[2016-09-24 05:43] LABS: EOSINOPHILS % 1.5 % (0.0-5.0)
[2016-09-24] MEDS: METRONIDAZOLE 500 MG PREMIX 100 ML IV SCH ×3 (05:59→23:12)
[2016-09-24 06:28] LABS: BASOPHILS % 0.9 % (0.0-2.0); HEMATOCRIT. 30.3 % (42.0-52.0); HEMOGLOBIN. 10.9 g/dL (14.0-18.0); LYMPHOCYTES % 13.8 % (20.0-50.0); MEAN CORPUSCULAR HEMOGLOBIN 31.7 pg (28.0-32.0); MEAN PLATELET VOLUME 10.8 fl (7.4-10.4); NEUTROPHILS % 77.7 % (40.0-76.0); RED BLOOD CELL COUNT 3.44 mill/uL (4.7-6.1); RED CELL DISTRIBUTION WIDTH 17.2 % (11.6-14.6)
[2016-09-24 06:36] LABS: PLATELET 27 x1000/uL (130-400)
[2016-09-24] MEDS: MIDODRINE HCL 5MG TABLET PO SCH ×3 (08:07→17:20)
[2016-09-24] MEDS: PANTOPRAZOLE SODIUM 40 MG/VIAL IV SCH (08:07)
[2016-09-24] MEDS: MEROPENEM 1,000 MG in SODIUM CHLORIDE 0.9% 100 ML IV SCH (08:07)
[2016-09-24] MEDS: MORPHINE SULFATE 2 MG/ML CPJ (NOT FOR IM USE) IV PRN ×3 (09:32→21:00)
[2016-09-24] MEDS ORDERED: POTASSIUM CHLORIDE INJ 40 MEQ in DEXT 5% WATER 250 ML IV NR (11:00)
[2016-09-24] MEDS: TOTAL PARENTERAL NUTRITION 1,000 ML IV SCH ×2 (17:21→21:01)
[2016-09-25] VITALS (96 sets, daily range): BP systolic 96–158; BP diastolic 53–95
[2016-09-25] MEDS: ACETYLCYSTEINE 100MG/ML 10% VIAL 4ML INH SCH ×6 (00:12→20:45)
[2016-09-25] MEDS: IPRATROPIUM/ALBUTEROL 0.5-3(2.5)MG/3ML NEB HHN SCH ×6 (00:12→20:44)
[2016-09-25] MEDS: BLOOD SUGAR DIAGNOSTIC STRIP TEST SCH ×4 (00:47→18:00)
[2016-09-25] MEDS: VANCOMYCIN HCL 1000 MG/20 ML ORAL PO SCH ×4 (00:47→18:45)
[2016-09-25] MEDS: MORPHINE SULFATE 2 MG/ML CPJ (NOT FOR IM USE) IV PRN ×6 (00:49→22:20)
[2016-09-25 05:51] LABS: BASOPHILS % 0.4 % (0.0-2.0); EOSINOPHILS % 2.2 % (0.0-5.0); HEMATOCRIT. 27.2 % (42.0-52.0); HEMOGLOBIN. 9.4 g/dL (14.0-18.0); MEAN CORPUSCULAR HEMOGLOBIN 30.1 pg (28.0-32.0); MEAN CORPUSCULAR VOLUME 87.1 fL (80.0-94.0); MEAN PLATELET VOLUME 9.8 fl (7.4-10.4); MONOCYTES % 8.1 % (2.0-8.0); NEUTROPHILS % 74.3 % (40.0-76.0); RED BLOOD CELL COUNT 3.13 mill/uL (4.7-6.1); RED CELL DISTRIBUTION WIDTH 16.4 % (11.6-14.6)
[2016-09-25 05:52] LABS: INR 1.7; PARTIAL THROMBOPLASTIN TIME 40.9 sec (24.0-34.0); PROTHROMBIN TIME 17.4 sec
[2016-09-25] MEDS: METRONIDAZOLE 500 MG PREMIX 100 ML IV SCH ×3 (05:54→22:20)
[2016-09-25 07:11] LABS: PLATELET 22 x1000/uL (130-400)
[2016-09-25 08:22] LABS: PHOSPHORUS 2.2 mg/dL (2.5-4.9)
[2016-09-25] MEDS: MEROPENEM 1,000 MG in SODIUM CHLORIDE 0.9% 100 ML IV SCH (08:29)
[2016-09-25] MEDS: MIDODRINE HCL 5MG TABLET PO SCH ×3 (08:30→17:00)
[2016-09-25] MEDS: PANTOPRAZOLE SODIUM 40 MG/VIAL IV SCH (08:31)
[2016-09-25] MEDS ORDERED: SODIUM PHOS,M-BASIC-D-BASIC 10 MM in DEXT 5% WATER 246.6667 ML IV NR (12:00)
[2016-09-25] MEDS ORDERED: ROCURONIUM BROMIDE 10MG/ML VIAL 5ML IV ONE (15:38)
[2016-09-25 16:48] LABS: BASOPHILS % 0.5 % (0.0-2.0); EOSINOPHILS % 1.8 % (0.0-5.0); HEMATOCRIT. 23.2 % (42.0-52.0); LYMPHOCYTES % 7.7 % (20.0-50.0); MEAN CORPUSCULAR HEMOGLOBIN 30.2 pg (28.0-32.0); MEAN CORPUSCULAR VOLUME 87.4 fL (80.0-94.0); MEAN PLATELET VOLUME 8.9 fl (7.4-10.4); MONOCYTES % 5.5 % (2.0-8.0); NEUTROPHILS % 84.5 % (40.0-76.0); PLATELET 63 x1000/uL (130-400); RED BLOOD CELL COUNT 2.65 mill/uL (4.7-6.1); RED CELL DISTRIBUTION WIDTH 16.5 % (11.6-14.6)
[2016-09-25] MEDS ORDERED: MIDAZOLAM HCL 2 MG/2 ML VIAL ONE (16:54)
[2016-09-25] MEDS ORDERED: FENTANYL CITRATE/PF 50MCG/ML 2ML VIAL ONE (16:54)
[2016-09-25 16:55] LABS: INR 1.4; PARTIAL THROMBOPLASTIN TIME 32.4 sec (24.0-34.0); PROTHROMBIN TIME 14.4 sec
[2016-09-25] MEDS: TOTAL PARENTERAL NUTRITION 1,000 ML IV SCH (18:42)
[2016-09-25] MEDS: SODIUM CHLORIDE 0.9% IV SCH (18:43)
[2016-09-25] MEDS: COLISTIMETHATE SODIUM IV SCH (18:43)
[2016-09-26] VITALS (70 sets, daily range): BP systolic 108–163; BP diastolic 57–98
[2016-09-26] MEDS: IPRATROPIUM/ALBUTEROL 0.5-3(2.5)MG/3ML NEB HHN SCH ×6 (00:36→20:22)
[2016-09-26] MEDS: BLOOD SUGAR DIAGNOSTIC STRIP TEST SCH ×4 (00:37→17:24)
[2016-09-26] MEDS: ACETYLCYSTEINE 100MG/ML 10% VIAL 4ML INH SCH ×5 (00:37→20:23)
[2016-09-26] MEDS: VANCOMYCIN HCL 1000 MG/20 ML ORAL PO SCH ×4 (00:38→17:23)
[2016-09-26] MEDS: MORPHINE SULFATE 2 MG/ML CPJ (NOT FOR IM USE) IV PRN ×5 (02:43→21:18)
[2016-09-26] MEDS ORDERED: NOREPINEPHRINE 4 MG in DEXT 5% WATER 250 ML IV PRN (02:52)
[2016-09-26 05:29] LABS: BASOPHILS % 0.4 % (0.0-2.0); EOSINOPHILS % 1.8 % (0.0-5.0); HEMATOCRIT. 23.3 % (42.0-52.0); HEMOGLOBIN. 7.9 g/dL (14.0-18.0); MEAN CORPUSCULAR HEMOGLOBIN 29.9 pg (28.0-32.0); MEAN CORPUSCULAR VOLUME 88.1 fL (80.0-94.0); MEAN PLATELET VOLUME 9.5 fl (7.4-10.4); MONOCYTES % 8.3 % (2.0-8.0); NEUTROPHILS % 76.5 % (40.0-76.0); PLATELET 66 x1000/uL (130-400); RED BLOOD CELL COUNT 2.65 mill/uL (4.7-6.1); RED CELL DISTRIBUTION WIDTH 16.4 % (11.6-14.6)
[2016-09-26 06:00] LABS: PHOSPHORUS 2.5 mg/dL (2.5-4.9)
[2016-09-26] MEDS: METRONIDAZOLE 500 MG PREMIX 100 ML IV SCH ×3 (06:22→21:02)
[2016-09-26 09:08] LABS: HEMATOCRIT 25.7 % (42.0-52.0); HEMOGLOBIN 8.9 g/dL (14.0-18.0)
[2016-09-26] MEDS: MEROPENEM 1,000 MG in SODIUM CHLORIDE 0.9% 100 ML IV SCH (10:11)
[2016-09-26] MEDS: MIDODRINE HCL 5MG TABLET PO SCH ×3 (10:11→17:00)
[2016-09-26] MEDS: PANTOPRAZOLE SODIUM 40 MG/VIAL IV SCH (10:11)
[2016-09-26] MEDS: ACETAMINOPHEN 325MG TABLET PO PRN (12:17)
[2016-09-26] MEDS: RACEPINEPHRINE 2.25% 0.5ML NEB VIAL HHN SCH ×2 (13:13→20:22)
[2016-09-26] MEDS: TOTAL PARENTERAL NUTRITION 1,000 ML IV SCH (15:08)
[2016-09-26] MEDS: FAT EMULSIONS 500 ML IV SCH (21:02)
[2016-09-27] VITALS (49 sets, daily range): BP systolic 121–174; BP diastolic 73–104
[2016-09-27] MEDS: BLOOD SUGAR DIAGNOSTIC STRIP TEST SCH ×5 (00:09→23:58)
[2016-09-27] MEDS: VANCOMYCIN HCL 1000 MG/20 ML ORAL PO SCH ×5 (00:09→23:57)
[2016-09-27] MEDS: IPRATROPIUM/ALBUTEROL 0.5-3(2.5)MG/3ML NEB HHN SCH ×6 (00:20→19:54)
[2016-09-27] MEDS: RACEPINEPHRINE 2.25% 0.5ML NEB VIAL HHN SCH ×2 (00:21→08:10)
[2016-09-27] MEDS: ACETYLCYSTEINE 100MG/ML 10% VIAL 4ML INH SCH ×5 (00:21→15:48)
[2016-09-27] MEDS: MORPHINE SULFATE 2 MG/ML CPJ (NOT FOR IM USE) IV PRN ×5 (01:33→20:42)
[2016-09-27] MEDS: COLISTIMETHATE SODIUM IV SCH (05:04)
[2016-09-27] MEDS: SODIUM CHLORIDE 0.9% IV SCH (05:04)
[2016-09-27] MEDS: METRONIDAZOLE 500 MG PREMIX 100 ML IV SCH ×3 (05:04→22:42)
[2016-09-27 05:41] LABS: BASOPHILS % 0.5 % (0.0-2.0); EOSINOPHILS % 1.6 % (0.0-5.0); HEMATOCRIT. 27.2 % (42.0-52.0); HEMOGLOBIN. 9.6 g/dL (14.0-18.0); LYMPHOCYTES % 11.5 % (20.0-50.0); MEAN CORPUSCULAR VOLUME 88.2 fL (80.0-94.0); MEAN PLATELET VOLUME 9.2 fl (7.4-10.4); MONOCYTES % 5.5 % (2.0-8.0); NEUTROPHILS % 80.9 % (40.0-76.0); PLATELET 51 x1000/uL (130-400); RED BLOOD CELL COUNT 3.08 mill/uL (4.7-6.1); RED CELL DISTRIBUTION WIDTH 16.5 % (11.6-14.6)
[2016-09-27 08:30] LABS: BG BASE EXCESS 2.9 mmol/L (-2.0-2.0); BG CARBOXYHEMOGLOBIN 0.2 % (0.5-1.5); BG DEOXYHEMOGLOBIN 2.7 % (0.0-5.0); BG FRACTION INSPIRED OXYGEN 28; BG HCO3 ACT 26.6 mmol/L (22.0-26.0); BG METHEMOGLOBIN 0.3 % (0.0-1.5); BG OXYGEN SATURATION 97.3 % (92.0-98.5); BG OXYHEMOGLOBIN 96.8 % (94.0-97.0); BG PH 7.474 (7.350-7.450); BG PO2 91.9 mmHg (75.0-100.0); BG SAMPLE SITE LEFT BRACHIAL; BG TIDAL VOLUME(mL) 550 mL; BG TOTAL HEMOGLOBIN 9.3 g/dL (12.0-18.0); BG VENT MODE VENT - A/C; BG VENT RATE 14 set
[2016-09-27] MEDS: MEROPENEM 1,000 MG in SODIUM CHLORIDE 0.9% 100 ML IV SCH (09:02)
[2016-09-27] MEDS: PANTOPRAZOLE SODIUM 40 MG/VIAL IV SCH (09:02)
[2016-09-27] MEDS: METOCLOPRAMIDE HCL 10MG/2ML VIAL IV SCH ×3 (11:16→23:57)
[2016-09-27] MEDS: TOTAL PARENTERAL NUTRITION 1,000 ML IV SCH (13:07)
[2016-09-28] VITALS (73 sets, daily range): BP systolic 83–174; BP diastolic 31–98
[2016-09-28] MEDS: IPRATROPIUM/ALBUTEROL 0.5-3(2.5)MG/3ML NEB HHN SCH ×5 (00:05→20:03)
[2016-09-28] MEDS: MORPHINE SULFATE 2 MG/ML CPJ (NOT FOR IM USE) IV PRN ×5 (01:17→20:36)
[2016-09-28 04:49] LABS: BASOPHILS % 0.6 % (0.0-2.0); EOSINOPHILS % 1.5 % (0.0-5.0); HEMATOCRIT. 25.2 % (42.0-52.0); HEMOGLOBIN. 8.5 g/dL (14.0-18.0); LYMPHOCYTES % 12.9 % (20.0-50.0); MEAN CORPUSCULAR HEMOGLOBIN 29.8 pg (28.0-32.0); MEAN CORPUSCULAR VOLUME 88.3 fL (80.0-94.0); MEAN PLATELET VOLUME 9.3 fl (7.4-10.4); MONOCYTES % 8.7 % (2.0-8.0); NEUTROPHILS % 76.3 % (40.0-76.0); RED BLOOD CELL COUNT 2.86 mill/uL (4.7-6.1); RED CELL DISTRIBUTION WIDTH 16.7 % (11.6-14.6)
[2016-09-28 05:03] LABS: PLATELET 42 x1000/uL (130-400)
[2016-09-28 05:08] LABS: PHOSPHORUS 2.6 mg/dL (2.5-4.9)
[2016-09-28] MEDS: TOTAL PARENTERAL NUTRITION 1,000 ML IV SCH (05:08)
[2016-09-28] MEDS: METOCLOPRAMIDE HCL 10MG/2ML VIAL IV SCH ×3 (05:49→17:43)
[2016-09-28] MEDS: METRONIDAZOLE 500 MG PREMIX 100 ML IV SCH ×3 (05:49→22:34)
[2016-09-28] MEDS: VANCOMYCIN HCL 1000 MG/20 ML ORAL PO SCH ×3 (05:49→17:43)
[2016-09-28] MEDS: BLOOD SUGAR DIAGNOSTIC STRIP TEST SCH ×3 (05:50→17:32)
[2016-09-28] MEDS: PANTOPRAZOLE SODIUM 40 MG/VIAL IV SCH (08:14)
[2016-09-28] MEDS: MEROPENEM 1,000 MG in SODIUM CHLORIDE 0.9% 100 ML IV SCH (08:14)
[2016-09-28] MEDS: COLISTIMETHATE SODIUM IV SCH (16:32)
[2016-09-28] MEDS: SODIUM CHLORIDE 0.9% IV SCH (16:32)
[2016-09-29] VITALS (21 sets, daily range): BP systolic 97–149; BP diastolic 60–88
[2016-09-29] MEDS: IPRATROPIUM/ALBUTEROL 0.5-3(2.5)MG/3ML NEB HHN SCH ×6 (00:36→19:44)
[2016-09-29] MEDS: BLOOD SUGAR DIAGNOSTIC STRIP TEST SCH ×4 (00:40→23:03)
[2016-09-29] MEDS: MORPHINE SULFATE 2 MG/ML CPJ (NOT FOR IM USE) IV PRN ×5 (00:42→23:00)
[2016-09-29] MEDS: VANCOMYCIN HCL 1000 MG/20 ML ORAL PO SCH ×5 (00:42→23:03)
[2016-09-29] MEDS: METOCLOPRAMIDE HCL 10MG/2ML VIAL IV SCH ×5 (00:49→23:02)
[2016-09-29] MEDS: TOTAL PARENTERAL NUTRITION 1,000 ML IV SCH ×2 (00:59→21:02)
[2016-09-29 06:34] LABS: BASOPHILS % 0.9 % (0.0-2.0); EOSINOPHILS % 1.4 % (0.0-5.0); HEMOGLOBIN. 8.6 g/dL (14.0-18.0); MEAN CORPUSCULAR HEMOGLOBIN 29.3 pg (28.0-32.0); MEAN CORPUSCULAR VOLUME 88.6 fL (80.0-94.0); MEAN PLATELET VOLUME 9.3 fl (7.4-10.4); MONOCYTES % 9.1 % (2.0-8.0); NEUTROPHILS % 74.6 % (40.0-76.0); RED BLOOD CELL COUNT 2.94 mill/uL (4.7-6.1)
[2016-09-29] MEDS: METRONIDAZOLE 500 MG PREMIX 100 ML IV SCH ×3 (06:36→21:02)
[2016-09-29 06:55] LABS: PLATELET 42 x1000/uL (130-400)
[2016-09-29] MEDS: MEROPENEM 1,000 MG in SODIUM CHLORIDE 0.9% 100 ML IV SCH (08:58)
[2016-09-29] MEDS: PANTOPRAZOLE SODIUM 40 MG/VIAL IV SCH (08:58)
[2016-09-29 17:42] LABS: BG BASE EXCESS 1.1 mmol/L (-2.0-2.0); BG DEOXYHEMOGLOBIN 4.9 % (0.0-5.0); BG HCO3 ACT 25.4 mmol/L (22.0-26.0); BG METHEMOGLOBIN 0.4 % (0.0-1.5); BG OXYGEN SATURATION 95.1 % (92.0-98.5); BG OXYHEMOGLOBIN 94.7 % (94.0-97.0); BG PCO2 38.9 mmHg (35.0-45.0); BG PH 7.433 (7.350-7.450); BG PO2 77.9 mmHg (75.0-100.0); BG SAMPLE SITE LEFT BRACHIAL; BG TIDAL VOLUME(mL) 550 mL; BG TOTAL HEMOGLOBIN 9.3 g/dL (12.0-18.0); BG VENT MODE VENT - SIMV; BG VENT RATE 10 set
[2016-09-30] VITALS (64 sets, daily range): BP systolic 58–195; BP diastolic 44–124
[2016-09-30] MEDS: IPRATROPIUM/ALBUTEROL 0.5-3(2.5)MG/3ML NEB HHN SCH ×6 (00:04→21:11)
[2016-09-30] MEDS: ACETAMINOPHEN 650MG/20.3ML UDC PO PRN ×2 (04:01→21:42)
[2016-09-30] MEDS: SODIUM CHLORIDE 0.9% IV SCH (04:01)
[2016-09-30] MEDS: COLISTIMETHATE SODIUM IV SCH (04:01)
[2016-09-30] MEDS: MORPHINE SULFATE 2 MG/ML CPJ (NOT FOR IM USE) IV PRN ×4 (04:03→21:36)
[2016-09-30 05:26] LABS: BASOPHILS % 0.9 % (0.0-2.0); EOSINOPHILS % 1.5 % (0.0-5.0); HEMATOCRIT. 23.7 % (42.0-52.0); LYMPHOCYTES % 13.8 % (20.0-50.0); MEAN CORPUSCULAR HEMOGLOBIN 29.8 pg (28.0-32.0); MEAN CORPUSCULAR VOLUME 88.2 fL (80.0-94.0); MEAN PLATELET VOLUME 9.2 fl (7.4-10.4); MONOCYTES % 11.3 % (2.0-8.0); NEUTROPHILS % 72.5 % (40.0-76.0); RED BLOOD CELL COUNT 2.69 mill/uL (4.7-6.1); RED CELL DISTRIBUTION WIDTH 16.2 % (11.6-14.6)
[2016-09-30 05:31] LABS: PLATELET 39 x1000/uL (130-400)
[2016-09-30] MEDS: BLOOD SUGAR DIAGNOSTIC STRIP TEST SCH ×3 (05:36→23:40)
[2016-09-30] MEDS: METOCLOPRAMIDE HCL 10MG/2ML VIAL IV SCH (05:36)
[2016-09-30] MEDS: VANCOMYCIN HCL 1000 MG/20 ML ORAL PO SCH ×2 (05:36→15:39)
[2016-09-30] MEDS: METRONIDAZOLE 500 MG PREMIX 100 ML IV SCH (05:36)
[2016-09-30 07:41] LABS: BG BASE EXCESS 1.2 mmol/L (-2.0-2.0); BG DEOXYHEMOGLOBIN 13.9 % (0.0-5.0); BG FRACTION INSPIRED OXYGEN 35; BG HCO3 ACT 26.2 mmol/L (22.0-26.0); BG METHEMOGLOBIN 0.7 % (0.0-1.5); BG OXYHEMOGLOBIN 85.4 % (94.0-97.0); BG PCO2 43.7 mmHg (35.0-45.0); BG PH 7.396 (7.350-7.450); BG PO2 51.5 mmHg (75.0-100.0); BG PRESSURE SUPPORT 14; BG SAMPLE SITE LEFT BRACHIAL; BG TIDAL VOLUME(mL) 550 mL; BG TOTAL HEMOGLOBIN 8.8 g/dL (12.0-18.0); BG VENT MODE VENT - SIMV; BG VENT RATE 10 set
[2016-09-30] MEDS: MEROPENEM 1,000 MG in SODIUM CHLORIDE 0.9% 100 ML IV SCH (07:44)
[2016-09-30] MEDS ORDERED: RACEPINEPHRINE 2.25% 0.5ML NEB VIAL HHN PRN ×2 (12:30→13:00)
[2016-09-30 14:13] LABS: HEMATOCRIT 26.2 % (42.0-52.0); HEMOGLOBIN 8.8 g/dL (14.0-18.0); MEAN CORPUSCULAR HEMOGLOBIN 29.5 pg (28.0-32.0); MEAN CORPUSCULAR VOLUME 88.2 fL (80.0-94.0); RED BLOOD CELL COUNT 2.98 mill/uL (4.7-6.1); RED CELL DISTRIBUTION WIDTH 16.1 % (11.6-14.6)
[2016-09-30 14:17] LABS: PLATELET 41 x1000/uL (130-400)
[2016-09-30] MEDS: PANTOPRAZOLE SODIUM 40 MG/VIAL IV SCH (15:38)
[2016-09-30] MEDS: FAT EMULSIONS 500 ML IV SCH (21:00)
[2016-09-30] MEDS: DEXTROSE 50% WATER 50ML SYRINGE IV PRN (23:30)
[2016-10-01] VITALS (50 sets, daily range): BP systolic 122–179; BP diastolic 64–105
[2016-10-01] MEDS: IPRATROPIUM/ALBUTEROL 0.5-3(2.5)MG/3ML NEB HHN SCH ×6 (01:24→20:08)
[2016-10-01] MEDS: MORPHINE SULFATE 2 MG/ML CPJ (NOT FOR IM USE) IV PRN ×4 (03:17→21:38)
[2016-10-01] MEDS: DEXTROSE 50% WATER 50ML SYRINGE IV PRN ×2 (06:03→12:11)
[2016-10-01] MEDS: BLOOD SUGAR DIAGNOSTIC STRIP TEST SCH ×3 (06:04→18:00)
[2016-10-01 08:50] LABS: HEMATOCRIT. 29.7 % (42.0-52.0); HEMOGLOBIN. 10.1 g/dL (14.0-18.0); MEAN CORPUSCULAR HEMOGLOBIN 30.2 pg (28.0-32.0); MEAN CORPUSCULAR VOLUME 88.2 fL (80.0-94.0); MEAN PLATELET VOLUME 9.4 fl (7.4-10.4); RED BLOOD CELL COUNT 3.36 mill/uL (4.7-6.1); RED CELL DISTRIBUTION WIDTH 15.5 % (11.6-14.6)
[2016-10-01 09:17] LABS: PLATELET 49 x1000/uL (130-400)
[2016-10-01] MEDS: PANTOPRAZOLE SODIUM 40 MG/VIAL IV SCH (09:51)
[2016-10-01] MEDS: DEXT 10%/0.45% NACL 1,000 ML IV SCH (12:41)
[2016-10-01] MEDS: ONDANSETRON HCL 4MG/2ML VIAL IV PRN (22:55)
[2016-10-02] VITALS (26 sets, daily range): BP systolic 98–168; BP diastolic 69–99
[2016-10-02] MEDS: BLOOD SUGAR DIAGNOSTIC STRIP TEST SCH ×5 (00:08→23:58)
[2016-10-02] MEDS: IPRATROPIUM/ALBUTEROL 0.5-3(2.5)MG/3ML NEB HHN SCH ×7 (00:25→23:51)
[2016-10-02] MEDS: MORPHINE SULFATE 2 MG/ML CPJ (NOT FOR IM USE) IV PRN ×3 (03:23→21:08)
[2016-10-02 06:25] LABS: HEMATOCRIT. 30.6 % (42.0-52.0); HEMOGLOBIN. 10.3 g/dL (14.0-18.0); MEAN CORPUSCULAR HEMOGLOBIN 29.7 pg (28.0-32.0); MEAN PLATELET VOLUME 8.7 fl (7.4-10.4); RED BLOOD CELL COUNT 3.47 mill/uL (4.7-6.1); RED CELL DISTRIBUTION WIDTH 15.8 % (11.6-14.6)
[2016-10-02 07:44] LABS: PLATELET ESTIMATE DECREASED
[2016-10-02 07:45] LABS: PLATELET 58 x1000/uL (130-400)
[2016-10-02] MEDS: PANTOPRAZOLE SODIUM 40 MG/VIAL IV SCH (09:49)
[2016-10-03] VITALS (12 sets, daily range): BP systolic 108–155; BP diastolic 65–86
[2016-10-03] MEDS: IPRATROPIUM/ALBUTEROL 0.5-3(2.5)MG/3ML NEB HHN SCH ×5 (04:26→20:24)
[2016-10-03] MEDS: BLOOD SUGAR DIAGNOSTIC STRIP TEST SCH ×4 (06:00→23:52)
[2016-10-03 06:50] LABS: HEMATOCRIT. 31.1 % (42.0-52.0); HEMOGLOBIN. 10.4 g/dL (14.0-18.0); MEAN CORPUSCULAR HEMOGLOBIN 29.7 pg (28.0-32.0); MEAN CORPUSCULAR VOLUME 89.2 fL (80.0-94.0); MEAN PLATELET VOLUME 11.1 fl (7.4-10.4); PLATELET 61 x1000/uL (130-400); RED BLOOD CELL COUNT 3.48 mill/uL (4.7-6.1); RED CELL DISTRIBUTION WIDTH 15.9 % (11.6-14.6)
[2016-10-03 06:57] LABS: PHOSPHORUS 3.5 mg/dL (2.5-4.9)
[2016-10-03] MEDS: ACETAMINOPHEN 650MG/20.3ML UDC PO PRN (10:07)
[2016-10-03] MEDS: DIPHENHYDRAMINE 50MG/ML VIAL IV PRN (10:07)
[2016-10-03] MEDS: PANTOPRAZOLE SODIUM 40 MG/VIAL IV SCH (10:21)
[2016-10-03] MEDS: DEXT 10%/0.45% NACL 1,000 ML IV SCH (17:53)
[2016-10-03] MEDS: MORPHINE SULFATE 2 MG/ML CPJ (NOT FOR IM USE) IV PRN (23:44)
[2016-10-04] VITALS (10 sets, daily range): BP systolic 107–155; BP diastolic 70–86
[2016-10-04] MEDS: IPRATROPIUM/ALBUTEROL 0.5-3(2.5)MG/3ML NEB HHN SCH ×5 (00:33→16:08)
[2016-10-04] MEDS: BLOOD SUGAR DIAGNOSTIC STRIP TEST SCH ×3 (05:52→17:54)
[2016-10-04] MEDS: DEXTROSE 50% WATER 50ML SYRINGE IV PRN (08:04)
[2016-10-04] MEDS: PANTOPRAZOLE SODIUM 40 MG/VIAL IV SCH (10:29)
[2016-10-04] MEDS: ACETAMINOPHEN 650MG/20.3ML UDC PO PRN (10:29)
[2016-10-04 12:16] LABS: HEMATOCRIT. 35.6 % (42.0-52.0); HEMOGLOBIN. 11.9 g/dL (14.0-18.0); MEAN CORPUSCULAR HEMOGLOBIN 29.4 pg (28.0-32.0); MEAN CORPUSCULAR VOLUME 87.9 fL (80.0-94.0); MEAN PLATELET VOLUME 9.3 fl (7.4-10.4); RED BLOOD CELL COUNT 4.05 mill/uL (4.7-6.1)
[2016-10-04 13:58] LABS: ATYPICAL LYMPHOCYTES 1; PLATELET ESTIMATE SLIGHTLY DECREASED
[2016-10-04 14:00] LABS: PLATELET 69 x1000/uL (130-400)
[2016-10-04] MEDS: MORPHINE SULFATE 2 MG/ML CPJ (NOT FOR IM USE) IV PRN (16:30)
[2016-10-05] VITALS (10 sets, daily range): BP systolic 131–178; BP diastolic 74–95
[2016-10-05] MEDS: BLOOD SUGAR DIAGNOSTIC STRIP TEST SCH ×3 (00:11→18:00)
[2016-10-05] MEDS: MORPHINE SULFATE 2 MG/ML CPJ (NOT FOR IM USE) IV PRN ×3 (00:21→22:43)
[2016-10-05] MEDS: PANTOPRAZOLE SODIUM 40 MG/VIAL IV SCH (10:25)
[2016-10-05] MEDS: DEXT 10%/0.45% NACL 1,000 ML IV SCH (10:26)
[2016-10-06] VITALS (12 sets, daily range): BP systolic 127–169; BP diastolic 77–95
[2016-10-06] MEDS: BLOOD SUGAR DIAGNOSTIC STRIP TEST SCH ×4 (00:24→17:19)
[2016-10-06] MEDS: IPRATROPIUM/ALBUTEROL 0.5-3(2.5)MG/3ML NEB HHN SCH ×6 (00:34→20:30)
[2016-10-06] MEDS: MORPHINE SULFATE 2 MG/ML CPJ (NOT FOR IM USE) IV PRN ×4 (04:26→22:30)
[2016-10-06] MEDS: PANTOPRAZOLE SODIUM 40 MG/VIAL IV SCH (09:12)
[2016-10-06] MEDS: DEXT 10%/0.45% NACL 1,000 ML IV SCH (14:19)
[2016-10-07] VITALS (12 sets, daily range): BP systolic 110–165; BP diastolic 65–92
[2016-10-07] MEDS: IPRATROPIUM/ALBUTEROL 0.5-3(2.5)MG/3ML NEB HHN SCH ×6 (00:17→19:59)
[2016-10-07] MEDS: MORPHINE SULFATE 2 MG/ML CPJ (NOT FOR IM USE) IV PRN ×3 (02:30→23:31)
[2016-10-07 06:36] LABS: HEMATOCRIT. 28.8 % (42.0-52.0); HEMOGLOBIN. 9.7 g/dL (14.0-18.0); MEAN CORPUSCULAR VOLUME 88.8 fL (80.0-94.0); MEAN PLATELET VOLUME 9.1 fl (7.4-10.4); PLATELET 136 x1000/uL (130-400); RED BLOOD CELL COUNT 3.24 mill/uL (4.7-6.1); RED CELL DISTRIBUTION WIDTH 15.6 % (11.6-14.6)
[2016-10-07] MEDS: BLOOD SUGAR DIAGNOSTIC STRIP TEST SCH ×5 (06:46→23:19)
[2016-10-07] MEDS: PANTOPRAZOLE SODIUM 40 MG/VIAL IV SCH (11:32)
[2016-10-07 13:16] LABS: PLATELET ESTIMATE NORMAL
[2016-10-07] MEDS: DEXT 10%/0.45% NACL 1,000 ML IV SCH (21:36)
[2016-10-07] MEDS: DIPHENHYDRAMINE 50MG/ML VIAL IV PRN (23:23)
[2016-10-08] VITALS (17 sets, daily range): BP systolic 115–147; BP diastolic 73–104
[2016-10-08] MEDS: IPRATROPIUM/ALBUTEROL 0.5-3(2.5)MG/3ML NEB HHN SCH ×6 (00:33→20:26)
[2016-10-08] MEDS: MORPHINE SULFATE 2 MG/ML CPJ (NOT FOR IM USE) IV PRN ×3 (05:03→18:23)
[2016-10-08] MEDS: BLOOD SUGAR DIAGNOSTIC STRIP TEST SCH ×3 (05:36→18:01)
[2016-10-08 08:37] LABS: HEMATOCRIT. 27.9 % (42.0-52.0); HEMOGLOBIN. 9.4 g/dL (14.0-18.0); MEAN CORPUSCULAR HEMOGLOBIN 29.4 pg (28.0-32.0); MEAN CORPUSCULAR VOLUME 87.8 fL (80.0-94.0); PLATELET 163 x1000/uL (130-400); RED BLOOD CELL COUNT 3.18 mill/uL (4.7-6.1); RED CELL DISTRIBUTION WIDTH 15.7 % (11.6-14.6)
[2016-10-08] MEDS: PANTOPRAZOLE SODIUM 40 MG/VIAL IV SCH (09:27)
[2016-10-08] MEDS ORDERED: POTASSIUM CHLORIDE 20MEQ/PACKET NG SCH (10:00)
[2016-10-08] MEDS: LORAZEPAM 2MG/ML CPJ IV PRN (12:32)
[2016-10-08 14:29] LABS: BG BASE EXCESS 0.2 mmol/L (-2.0-2.0); BG CARBOXYHEMOGLOBIN 0.3 % (0.5-1.5); BG DEOXYHEMOGLOBIN 2.9 % (0.0-5.0); BG HCO3 ACT 24.2 mmol/L (22.0-26.0); BG METHEMOGLOBIN 0.4 % (0.0-1.5); BG OXYGEN SATURATION 97.1 % (92.0-98.5); BG OXYHEMOGLOBIN 96.4 % (94.0-97.0); BG PCO2 36.9 mmHg (35.0-45.0); BG PH 7.435 (7.350-7.450); BG PO2 96.8 mmHg (75.0-100.0); BG SAMPLE SITE LEFT BRACHIAL; BG TIDAL VOLUME(mL) 550 mL; BG TOTAL HEMOGLOBIN 10.4 g/dL (12.0-18.0); BG VENT MODE VENT - SIMV; BG VENT RATE 8 set
[2016-10-08] MEDS ORDERED: MORPHINE SULFATE 4 MG/ML CPJ (NOT FOR IM USE) IV PRN (23:45)
[2016-10-09] VITALS (12 sets, daily range): BP systolic 101–139; BP diastolic 54–85
[2016-10-09] MEDS: IPRATROPIUM/ALBUTEROL 0.5-3(2.5)MG/3ML NEB HHN SCH ×7 (00:08→23:48)
[2016-10-09] MEDS: BLOOD SUGAR DIAGNOSTIC STRIP TEST SCH ×5 (05:19→23:52)
[2016-10-09] MEDS: DEXTROSE 50% WATER 50ML SYRINGE IV PRN (05:19)
[2016-10-09] MEDS: LORAZEPAM 2MG/ML CPJ IV PRN ×3 (05:35→21:28)
[2016-10-09 09:22] LABS: HEMOGLOBIN. 9.1 g/dL (14.0-18.0); MEAN CORPUSCULAR HEMOGLOBIN 29.8 pg (28.0-32.0); MEAN PLATELET VOLUME 8.3 fl (7.4-10.4); PLATELET 158 x1000/uL (130-400); RED BLOOD CELL COUNT 3.07 mill/uL (4.7-6.1); RED CELL DISTRIBUTION WIDTH 15.8 % (11.6-14.6)
[2016-10-09] MEDS: PANTOPRAZOLE SODIUM 40 MG/VIAL IV SCH (09:22)
[2016-10-09 10:17] LABS: ATYPICAL LYMPHOCYTES 2
[2016-10-09 10:18] LABS: PLATELET ESTIMATE NORMAL
[2016-10-09] MEDS: DEXT 10%/0.45% NACL 1,000 ML IV SCH (11:03)
[2016-10-10] VITALS (12 sets, daily range): BP systolic 106–141; BP diastolic 62–92
[2016-10-10] MEDS: IPRATROPIUM/ALBUTEROL 0.5-3(2.5)MG/3ML NEB HHN SCH ×5 (04:14→19:59)
[2016-10-10] MEDS: LORAZEPAM 2MG/ML CPJ IV PRN ×2 (05:30→20:54)
[2016-10-10] MEDS: DEXTROSE 50% WATER 50ML SYRINGE IV PRN ×2 (06:24→12:11)
[2016-10-10] MEDS: BLOOD SUGAR DIAGNOSTIC STRIP TEST SCH ×3 (06:31→18:59)
[2016-10-10] MEDS: PANTOPRAZOLE SODIUM 40 MG/VIAL IV SCH (07:51)
[2016-10-10] MEDS ORDERED: SIMETHICONE 40 MG/0.6 ML 30ML ONE ×2 (09:36→14:54)
[2016-10-10] MEDS ORDERED: SODIUM CHLORIDE 0.9% 10ML VIAL ONE (09:36)
[2016-10-10 11:24] LABS: HEMATOCRIT. 27.6 % (42.0-52.0); HEMOGLOBIN. 9.1 g/dL (14.0-18.0); MEAN CORPUSCULAR HEMOGLOBIN 29.1 pg (28.0-32.0); MEAN CORPUSCULAR VOLUME 87.9 fL (80.0-94.0); MEAN PLATELET VOLUME 8.4 fl (7.4-10.4); PLATELET 180 x1000/uL (130-400); RED BLOOD CELL COUNT 3.14 mill/uL (4.7-6.1)
[2016-10-10 11:31] LABS: INR 1.3; PARTIAL THROMBOPLASTIN TIME 33.9 sec (24.0-34.0)
[2016-10-10] MEDS ORDERED: CEFAZOLIN SODIUM 1000MG/VIAL IM NR (12:00)
[2016-10-10 12:09] LABS: NUCLEATED RED BLOOD CELLS 1 /100 WBC; PLATELET ESTIMATE NORMAL
[2016-10-10] MEDS: MORPHINE SULFATE 4 MG/ML CPJ (NOT FOR IM USE) IV PRN ×2 (12:22→20:19)
[2016-10-10] MEDS ORDERED: CEFAZOLIN 1000MG PREMIX 50 ML IV NR (13:00)
[2016-10-10] MEDS ORDERED: CEFAZOLIN SODIUM 1000MG/VIAL IV ONE (13:00)
[2016-10-10] MEDS ORDERED: FENTANYL CITRATE/PF 50MCG/ML 2ML VIAL ONE (14:54)
[2016-10-10] MEDS ORDERED: MIDAZOLAM HCL 5 MG/5 ML VIAL ONE (14:54)
[2016-10-10] MEDS ORDERED: MIDAZOLAM HCL 5 MG/5 ML VIAL IV PRN (14:57)
[2016-10-10] MEDS ORDERED: FENTANYL CITRATE/PF 50MCG/ML 2ML VIAL IV PRN (14:57)
[2016-10-10] MEDS: SODIUM CHLORIDE 23.4% 77 MEQ in DEXT 10% WATER 1,000 ML IV SCH (15:40)
[2016-10-11] VITALS (12 sets, daily range): BP systolic 111–146; BP diastolic 55–94
[2016-10-11] MEDS: IPRATROPIUM/ALBUTEROL 0.5-3(2.5)MG/3ML NEB HHN SCH ×6 (00:25→23:45)
[2016-10-11] MEDS: BLOOD SUGAR DIAGNOSTIC STRIP TEST SCH ×4 (00:40→17:33)
[2016-10-11] MEDS: LORAZEPAM 2MG/ML CPJ IV PRN ×4 (02:05→22:36)
[2016-10-11] MEDS: DEXTROSE 50% WATER 50ML SYRINGE IV PRN (05:35)
[2016-10-11] MEDS: PANTOPRAZOLE SODIUM 40 MG/VIAL IV SCH (09:58)
[2016-10-11 15:30] LABS: BASOPHILS % 0.5 % (0.0-2.0); EOSINOPHILS % 1.7 % (0.0-5.0); HEMATOCRIT. 28.5 % (42.0-52.0); HEMOGLOBIN. 9.7 g/dL (14.0-18.0); LYMPHOCYTES % 11.1 % (20.0-50.0); MEAN CORPUSCULAR HEMOGLOBIN 30.2 pg (28.0-32.0); MEAN CORPUSCULAR VOLUME 88.6 fL (80.0-94.0); MEAN PLATELET VOLUME 8.3 fl (7.4-10.4); MONOCYTES % 11.2 % (2.0-8.0); NEUTROPHILS % 75.5 % (40.0-76.0); PLATELET 206 x1000/uL (130-400); RED BLOOD CELL COUNT 3.21 mill/uL (4.7-6.1); RED CELL DISTRIBUTION WIDTH 15.7 % (11.6-14.6)
[2016-10-11] MEDS: MORPHINE SULFATE 4 MG/ML CPJ (NOT FOR IM USE) IV PRN (17:28)
[2016-10-11] MEDS ORDERED: DIGOXIN 500MCG/2ML AMP IV ONE (18:00)
[2016-10-11] MEDS ORDERED: METOPROLOL TARTRATE 5MG/5ML VIAL IV NR (20:30)
[2016-10-12] VITALS (12 sets, daily range): BP systolic 108–135; BP diastolic 66–83
[2016-10-12] MEDS: SODIUM CHLORIDE 23.4% 77 MEQ in DEXT 10% WATER 1,000 ML IV SCH (00:59)
[2016-10-12] MEDS: MORPHINE SULFATE 4 MG/ML CPJ (NOT FOR IM USE) IV PRN ×3 (01:02→15:51)
[2016-10-12] MEDS: IPRATROPIUM/ALBUTEROL 0.5-3(2.5)MG/3ML NEB HHN SCH ×6 (04:00→19:58)
[2016-10-12] MEDS: LORAZEPAM 2MG/ML CPJ IV PRN ×2 (04:20→18:29)
[2016-10-12] MEDS: DEXTROSE 50% WATER 50ML SYRINGE IV PRN (06:08)
[2016-10-12] MEDS: BLOOD SUGAR DIAGNOSTIC STRIP TEST SCH ×4 (06:16→18:28)
[2016-10-12] MEDS: METOPROLOL TARTRATE 25MG TABLET PO SCH ×2 (08:22→20:53)
[2016-10-12] MEDS: PANTOPRAZOLE SODIUM 40 MG/VIAL IV SCH (08:22)
[2016-10-12] MEDS: ACETYLCYSTEINE 100MG/ML 10% VIAL 4ML INH SCH ×2 (09:43→15:32)
[2016-10-13] VITALS (12 sets, daily range): BP systolic 116–147; BP diastolic 67–90
[2016-10-13] MEDS: IPRATROPIUM/ALBUTEROL 0.5-3(2.5)MG/3ML NEB HHN SCH ×6 (00:18→19:50)
[2016-10-13] MEDS: LORAZEPAM 2MG/ML CPJ IV PRN ×3 (00:50→20:22)
[2016-10-13] MEDS: DEXTROSE 50% WATER 50ML SYRINGE IV PRN ×2 (01:08→18:50)
[2016-10-13] MEDS: BLOOD SUGAR DIAGNOSTIC STRIP TEST SCH ×5 (06:00→23:42)
[2016-10-13 06:49] LABS: BASOPHILS % 0.3 % (0.0-2.0); EOSINOPHILS % 0.8 % (0.0-5.0); HEMATOCRIT. 23.7 % (42.0-52.0); HEMOGLOBIN. 8.1 g/dL (14.0-18.0); LYMPHOCYTES % 13.1 % (20.0-50.0); MEAN CORPUSCULAR VOLUME 87.8 fL (80.0-94.0); MEAN PLATELET VOLUME 7.8 fl (7.4-10.4); MONOCYTES % 12.4 % (2.0-8.0); NEUTROPHILS % 73.4 % (40.0-76.0); PLATELET 172 x1000/uL (130-400); RED CELL DISTRIBUTION WIDTH 15.8 % (11.6-14.6)
[2016-10-13] MEDS: ACETYLCYSTEINE 100MG/ML 10% VIAL 4ML INH SCH ×2 (08:22→17:03)
[2016-10-13] MEDS: PANTOPRAZOLE SODIUM 40 MG/VIAL IV SCH (08:49)
[2016-10-13] MEDS: METOPROLOL TARTRATE 25MG TABLET PO SCH ×2 (08:49→20:22)
[2016-10-13] MEDS: SODIUM CHLORIDE 23.4% 77 MEQ in DEXT 10% WATER 1,000 ML IV SCH (11:04)
[2016-10-13] MEDS: MORPHINE SULFATE 4 MG/ML CPJ (NOT FOR IM USE) IV PRN (11:05)
[2016-10-13] MEDS: ACETAMINOPHEN 650MG/20.3ML UDC PO PRN (20:22)
[2016-10-14] VITALS (12 sets, daily range): BP systolic 91–146; BP diastolic 59–115
[2016-10-14] MEDS: IPRATROPIUM/ALBUTEROL 0.5-3(2.5)MG/3ML NEB HHN SCH ×6 (00:27→20:47)
[2016-10-14] MEDS: LORAZEPAM 2MG/ML CPJ IV PRN ×3 (01:18→20:30)
[2016-10-14] MEDS: MORPHINE SULFATE 4 MG/ML CPJ (NOT FOR IM USE) IV PRN ×3 (01:19→20:36)
[2016-10-14 05:56] LABS: BASOPHILS % 0.5 % (0.0-2.0); EOSINOPHILS % 1.1 % (0.0-5.0); HEMATOCRIT. 23.8 % (42.0-52.0); LYMPHOCYTES % 12.2 % (20.0-50.0); MEAN CORPUSCULAR HEMOGLOBIN 29.8 pg (28.0-32.0); MEAN CORPUSCULAR VOLUME 88.3 fL (80.0-94.0); MONOCYTES % 8.9 % (2.0-8.0); NEUTROPHILS % 77.3 % (40.0-76.0); PLATELET 160 x1000/uL (130-400); RED BLOOD CELL COUNT 2.69 mill/uL (4.7-6.1); RED CELL DISTRIBUTION WIDTH 15.3 % (11.6-14.6)
[2016-10-14] MEDS: BLOOD SUGAR DIAGNOSTIC STRIP TEST SCH ×3 (06:00→17:42)
[2016-10-14 06:59] LABS: PHOSPHORUS 4.1 mg/dL (2.5-4.9)
[2016-10-14] MEDS: METOPROLOL TARTRATE 25MG TABLET PO SCH ×2 (08:31→20:30)
[2016-10-14] MEDS: PANTOPRAZOLE SODIUM 40 MG/VIAL IV SCH (08:32)
[2016-10-14] MEDS: ACETYLCYSTEINE 100MG/ML 10% VIAL 4ML INH SCH ×2 (10:05→20:47)
[2016-10-14] MEDS: SODIUM CHLORIDE 23.4% 77 MEQ in DEXT 10% WATER 1,000 ML IV SCH (22:50)
[2016-10-15] VITALS (12 sets, daily range): BP systolic 83–142; BP diastolic 45–75
[2016-10-15] MEDS: IPRATROPIUM/ALBUTEROL 0.5-3(2.5)MG/3ML NEB HHN SCH ×6 (00:27→20:42)
[2016-10-15] MEDS: LORAZEPAM 2MG/ML CPJ IV PRN ×3 (04:16→21:06)
[2016-10-15] MEDS: MORPHINE SULFATE 4 MG/ML CPJ (NOT FOR IM USE) IV PRN ×3 (04:18→17:39)
[2016-10-15] MEDS: BLOOD SUGAR DIAGNOSTIC STRIP TEST SCH ×4 (06:00→17:38)
[2016-10-15 07:05] LABS: BASOPHILS % 0.5 % (0.0-2.0); EOSINOPHILS % 0.9 % (0.0-5.0); HEMATOCRIT. 25.8 % (42.0-52.0); HEMOGLOBIN. 8.7 g/dL (14.0-18.0); LYMPHOCYTES % 15.4 % (20.0-50.0); MEAN CORPUSCULAR HEMOGLOBIN 29.8 pg (28.0-32.0); MEAN CORPUSCULAR VOLUME 88.9 fL (80.0-94.0); MEAN PLATELET VOLUME 7.9 fl (7.4-10.4); MONOCYTES % 10.5 % (2.0-8.0); NEUTROPHILS % 72.7 % (40.0-76.0); PLATELET 151 x1000/uL (130-400); RED BLOOD CELL COUNT 2.91 mill/uL (4.7-6.1); RED CELL DISTRIBUTION WIDTH 15.6 % (11.6-14.6)
[2016-10-15 07:44] LABS: PHOSPHORUS 3.7 mg/dL (2.5-4.9)
[2016-10-15] MEDS: METOPROLOL TARTRATE 25MG TABLET PO SCH ×3 (09:00→21:00)
[2016-10-15] MEDS: ASCORBIC ACID 250 MG TABLET PO SCH ×3 (09:00→17:00)
[2016-10-15] MEDS: FOLIC ACID/VITAMIN B COMP W-C TABLET PO SCH ×2 (09:00→09:30)
[2016-10-15] MEDS: ZINC SULFATE 220 MG ( 50 ) CAPSULE PO SCH (09:23)
[2016-10-15] MEDS: PANTOPRAZOLE SODIUM 40 MG/VIAL IV SCH (09:23)
[2016-10-15] MEDS: ACETYLCYSTEINE 100MG/ML 10% VIAL 4ML INH SCH (11:52)
[2016-10-15] MEDS: DEXTROSE 50% WATER 50ML SYRINGE IV PRN ×3 (12:05→21:06)
[2016-10-16] VITALS (12 sets, daily range): BP systolic 92–153; BP diastolic 43–96
[2016-10-16] MEDS: IPRATROPIUM/ALBUTEROL 0.5-3(2.5)MG/3ML NEB HHN SCH ×6 (00:27→20:44)
[2016-10-16] MEDS: BLOOD SUGAR DIAGNOSTIC STRIP TEST SCH ×2 (00:51→06:00)
[2016-10-16] MEDS: DEXTROSE 50% WATER 50ML SYRINGE IV PRN ×4 (00:52→13:31)
[2016-10-16] MEDS: MORPHINE SULFATE 4 MG/ML CPJ (NOT FOR IM USE) IV PRN (01:23)
[2016-10-16] MEDS: LORAZEPAM 2MG/ML CPJ IV PRN ×3 (03:26→22:14)
[2016-10-16 06:58] LABS: BASOPHILS % 0.5 % (0.0-2.0); EOSINOPHILS % 1.6 % (0.0-5.0); HEMATOCRIT. 23.2 % (42.0-52.0); HEMOGLOBIN. 7.9 g/dL (14.0-18.0); LYMPHOCYTES % 15.4 % (20.0-50.0); MEAN CORPUSCULAR HEMOGLOBIN 30.1 pg (28.0-32.0); MEAN CORPUSCULAR VOLUME 88.3 fL (80.0-94.0); MEAN PLATELET VOLUME 7.7 fl (7.4-10.4); MONOCYTES % 11.3 % (2.0-8.0); NEUTROPHILS % 71.2 % (40.0-76.0); PLATELET 146 x1000/uL (130-400); RED BLOOD CELL COUNT 2.63 mill/uL (4.7-6.1); RED CELL DISTRIBUTION WIDTH 15.4 % (11.6-14.6)
[2016-10-16] MEDS: SODIUM CHLORIDE 23.4% 77 MEQ in DEXT 10% WATER 1,000 ML IV SCH (07:32)
[2016-10-16] MEDS: ACETYLCYSTEINE 100MG/ML 10% VIAL 4ML INH SCH ×3 (08:22→16:10)
[2016-10-16] MEDS: ASCORBIC ACID 250 MG TABLET PO SCH ×2 (08:53→16:37)
[2016-10-16] MEDS: ZINC SULFATE 220 MG ( 50 ) CAPSULE PO SCH (08:53)
[2016-10-16] MEDS: METOPROLOL TARTRATE 25MG TABLET PO SCH ×2 (08:53→21:00)
[2016-10-16] MEDS: FOLIC ACID/VITAMIN B COMP W-C TABLET PO SCH (08:53)
[2016-10-16] MEDS: PANTOPRAZOLE SODIUM 40 MG/VIAL IV SCH (08:53)
[2016-10-16] MEDS ORDERED: AMIODARONE HCL 900 MG in DEXT 5% WATER 482 ML IV PRN (13:30)
[2016-10-16] MEDS ORDERED: POTASSIUM CHLORIDE INJ 40 MEQ in DEXT 5% WATER 500 ML IV NR (18:30)
[2016-10-17] VITALS (19 sets, daily range): BP systolic 89–162; BP diastolic 59–100
[2016-10-17] MEDS: DEXTROSE 50% WATER 50ML SYRINGE IV PRN ×3 (00:12→06:40)
[2016-10-17] MEDS: IPRATROPIUM/ALBUTEROL 0.5-3(2.5)MG/3ML NEB HHN SCH ×5 (00:57→20:36)
[2016-10-17] MEDS: LORAZEPAM 2MG/ML CPJ IV PRN ×4 (02:42→22:11)
[2016-10-17 06:08] LABS: BASOPHILS % 0.4 % (0.0-2.0); EOSINOPHILS % 1.1 % (0.0-5.0); HEMATOCRIT. 24.3 % (42.0-52.0); HEMOGLOBIN. 8.2 g/dL (14.0-18.0); LYMPHOCYTES % 13.8 % (20.0-50.0); MEAN CORPUSCULAR HEMOGLOBIN 30.1 pg (28.0-32.0); MEAN CORPUSCULAR VOLUME 89.4 fL (80.0-94.0); MEAN PLATELET VOLUME 7.7 fl (7.4-10.4); MONOCYTES % 8.9 % (2.0-8.0); NEUTROPHILS % 75.8 % (40.0-76.0); PLATELET 137 x1000/uL (130-400); RED BLOOD CELL COUNT 2.72 mill/uL (4.7-6.1); RED CELL DISTRIBUTION WIDTH 15.5 % (11.6-14.6)
[2016-10-17] MEDS ORDERED: BUPIVACAINE HCL 0.5% (5MG/ML) 50ML ONE (07:06)
[2016-10-17] MEDS ORDERED: SKIN ADHESIVE 0.7 GM EA TOP ONE (07:06)
[2016-10-17] MEDS: PANTOPRAZOLE SODIUM 40 MG/VIAL IV SCH (08:00)
[2016-10-17] MEDS ORDERED: CEFAZOLIN SODIUM 1000MG/VIAL ONE (08:19)
[2016-10-17] MEDS ORDERED: ROCURONIUM BROMIDE 10MG/ML VIAL 5ML IV ONE (08:22)
[2016-10-17] MEDS: ASCORBIC ACID 250 MG TABLET PO SCH ×2 (08:25→16:47)
[2016-10-17] MEDS: ZINC SULFATE 220 MG ( 50 ) CAPSULE PO SCH (08:25)
[2016-10-17] MEDS: FOLIC ACID/VITAMIN B COMP W-C TABLET PO SCH (08:25)
[2016-10-17] MEDS: METOPROLOL TARTRATE 25MG TABLET PO SCH ×2 (08:25→21:00)
[2016-10-17] MEDS ORDERED: MIDAZOLAM HCL 2 MG/2 ML VIAL ONE (08:39)
[2016-10-17] MEDS ORDERED: MORPHINE SULFATE 2 MG/ML CPJ (NOT FOR IM USE) IV PRN (08:45)
[2016-10-17] MEDS ORDERED: ONDANSETRON HCL 4MG/2ML VIAL IV PRN (08:45)
[2016-10-17] MEDS ORDERED: FENTANYL CITRATE/PF 50MCG/ML 2ML VIAL ONE (09:06)
[2016-10-17] MEDS ORDERED: ONDANSETRON HCL 4MG/2ML VIAL ONE (09:46)
[2016-10-17] MEDS: MORPHINE SULFATE 4 MG/ML CPJ (NOT FOR IM USE) IV PRN ×2 (15:46→21:18)
[2016-10-17] MEDS: SODIUM CHLORIDE 23.4% 77 MEQ in DEXT 10% WATER 1,000 ML IV SCH (16:58)
[2016-10-18] VITALS (15 sets, daily range): BP systolic 85–164; BP diastolic 53–98
[2016-10-18] MEDS: IPRATROPIUM/ALBUTEROL 0.5-3(2.5)MG/3ML NEB HHN SCH ×7 (00:04→23:48)
[2016-10-18] MEDS: LORAZEPAM 2MG/ML CPJ IV PRN ×3 (01:26→12:47)
[2016-10-18] MEDS: MORPHINE SULFATE 4 MG/ML CPJ (NOT FOR IM USE) IV PRN ×2 (01:27→04:33)
[2016-10-18] MEDS: DEXTROSE 50% WATER 50ML SYRINGE IV PRN (06:58)
[2016-10-18] MEDS: METOPROLOL TARTRATE 25MG TABLET PO SCH ×2 (08:20→20:07)
[2016-10-18] MEDS: FOLIC ACID/VITAMIN B COMP W-C TABLET PO SCH (08:20)
[2016-10-18] MEDS: ZINC SULFATE 220 MG ( 50 ) CAPSULE PO SCH (08:20)
[2016-10-18] MEDS: ASCORBIC ACID 250 MG TABLET PO SCH ×2 (08:20→17:08)
[2016-10-18] MEDS ORDERED: DIGOXIN 500MCG/2ML AMP IV SCH (08:45)
[2016-10-18] MEDS: PANTOPRAZOLE SODIUM 40 MG/VIAL IV SCH (08:53)
[2016-10-18] MEDS: AMIODARONE HCL 900 MG in DEXT 5% WATER 500 ML IV SCH (10:48)
[2016-10-18 11:01] LABS: HEMATOCRIT. 27.3 % (42.0-52.0); HEMOGLOBIN. 9.3 g/dL (14.0-18.0); MEAN CORPUSCULAR VOLUME 88.2 fL (80.0-94.0); MEAN PLATELET VOLUME 7.8 fl (7.4-10.4); PLATELET 156 x1000/uL (130-400); RED CELL DISTRIBUTION WIDTH 15.5 % (11.6-14.6)
[2016-10-18] MEDS ORDERED: HYDRALAZINE 20MG/ML VIAL IV PRN (14:00)
[2016-10-18] MEDS ORDERED: HETASTARCH/NORMAL SALINE 500 ML PLAST..BAG IV ONE (14:30)
[2016-10-18] MEDS ORDERED: HETASTARCH/NORMAL SALINE 250 ML IV NR (16:00)
[2016-10-18] MEDS: MEROPENEM 500 MG in SODIUM CHLORIDE 0.9% 50 ML IV SCH (17:08)
[2016-10-18] MEDS ORDERED: VANCOMYCIN 750 MG PREMIX 150 ML IV NR ×2 (18:00→19:30)
[2016-10-18] MEDS: ACETAMINOPHEN 650MG/20.3ML UDC PO PRN (20:07)
[2016-10-18] MEDS: HYDROCORTISONE SOD SUCCINATE 100 MG/2 ML VIAL IV SCH (21:50)
[2016-10-19] VITALS (12 sets, daily range): BP systolic 100–130; BP diastolic 63–73
[2016-10-19] MEDS: SODIUM CHLORIDE 23.4% 77 MEQ in DEXT 10% WATER 1,000 ML IV SCH (02:55)
[2016-10-19] MEDS: AMIODARONE HCL 900 MG in DEXT 5% WATER 500 ML IV SCH (02:55)
[2016-10-19] MEDS: IPRATROPIUM/ALBUTEROL 0.5-3(2.5)MG/3ML NEB HHN SCH ×5 (03:07→19:37)
[2016-10-19] MEDS: LORAZEPAM 2MG/ML CPJ IV PRN (03:36)
[2016-10-19] MEDS: MEROPENEM 500 MG in SODIUM CHLORIDE 0.9% 50 ML IV SCH ×2 (05:13→17:33)
[2016-10-19] MEDS: HYDROCORTISONE SOD SUCCINATE 100 MG/2 ML VIAL IV SCH ×3 (05:13→21:28)
[2016-10-19 07:01] LABS: HEMATOCRIT. 25.9 % (42.0-52.0); HEMOGLOBIN. 8.6 g/dL (14.0-18.0); MEAN CORPUSCULAR HEMOGLOBIN 30.2 pg (28.0-32.0); MEAN CORPUSCULAR VOLUME 90.3 fL (80.0-94.0); MEAN PLATELET VOLUME 7.7 fl (7.4-10.4); PLATELET 126 x1000/uL (130-400); RED BLOOD CELL COUNT 2.87 mill/uL (4.7-6.1); RED CELL DISTRIBUTION WIDTH 15.8 % (11.6-14.6)
[2016-10-19] MEDS: PANTOPRAZOLE SODIUM 40 MG/VIAL IV SCH (09:41)
[2016-10-19] MEDS: METOPROLOL TARTRATE 25MG TABLET PO SCH ×2 (09:41→20:10)
[2016-10-19] MEDS: ASCORBIC ACID 250 MG TABLET PO SCH ×2 (09:42→17:34)
[2016-10-19] MEDS: FOLIC ACID/VITAMIN B COMP W-C TABLET PO SCH (09:42)
[2016-10-19] MEDS: ZINC SULFATE 220 MG ( 50 ) CAPSULE PO SCH (09:42)
[2016-10-19] MEDS: MORPHINE SULFATE 4 MG/ML CPJ (NOT FOR IM USE) IV PRN (10:04)
[2016-10-19 11:20] LABS: PLATELET ESTIMATE NORMAL
[2016-10-19 12:46] LABS: PLATELET ESTIMATE NORMAL
[2016-10-20] VITALS (11 sets, daily range): BP systolic 116–138; BP diastolic 58–85
[2016-10-20] MEDS: IPRATROPIUM/ALBUTEROL 0.5-3(2.5)MG/3ML NEB HHN SCH ×7 (00:04→23:54)
[2016-10-20] MEDS: MORPHINE SULFATE 4 MG/ML CPJ (NOT FOR IM USE) IV PRN (03:10)
[2016-10-20] MEDS: MEROPENEM 500 MG in SODIUM CHLORIDE 0.9% 50 ML IV SCH (04:16)
[2016-10-20] MEDS: HYDROCORTISONE SOD SUCCINATE 100 MG/2 ML VIAL IV SCH ×2 (05:24→14:08)
[2016-10-20] MEDS: PANTOPRAZOLE SODIUM 40 MG/VIAL IV SCH (10:37)
[2016-10-20] MEDS: ZINC SULFATE 220 MG ( 50 ) CAPSULE PO SCH (10:38)
[2016-10-20] MEDS: ASCORBIC ACID 250 MG TABLET PO SCH ×2 (10:38→16:47)
[2016-10-20] MEDS: AMIODARONE HCL 200 MG TABLET PO SCH (10:38)
[2016-10-20] MEDS: METOPROLOL TARTRATE 25MG TABLET PO SCH ×2 (10:38→20:14)
[2016-10-20] MEDS: FOLIC ACID/VITAMIN B COMP W-C TABLET PO SCH (10:39)
[2016-10-20] MEDS: SODIUM CHLORIDE 23.4% 77 MEQ in DEXT 10% WATER 1,000 ML IV SCH (14:25)
[2016-10-20] MEDS: LORAZEPAM 2MG/ML CPJ IV PRN ×2 (16:46→21:43)
[2016-10-20 23:22] LABS: HEMATOCRIT. 23.3 % (42.0-52.0); HEMOGLOBIN. 7.7 g/dL (14.0-18.0); MEAN CORPUSCULAR HEMOGLOBIN 29.8 pg (28.0-32.0); MEAN CORPUSCULAR VOLUME 89.6 fL (80.0-94.0); MEAN PLATELET VOLUME 7.7 fl (7.4-10.4); PLATELET 110 x1000/uL (130-400); RED BLOOD CELL COUNT 2.59 mill/uL (4.7-6.1)
[2016-10-21] VITALS (12 sets, daily range): BP systolic 16–159; BP diastolic 67–90
[2016-10-21] MEDS: SODIUM CHLORIDE 23.4% 77 MEQ in DEXT 10% WATER 1,000 ML IV SCH (01:52)
[2016-10-21] MEDS: IPRATROPIUM/ALBUTEROL 0.5-3(2.5)MG/3ML NEB HHN SCH ×6 (03:57→23:33)
[2016-10-21 06:07] LABS: HEMATOCRIT. 23.9 % (42.0-52.0); HEMOGLOBIN. 8.1 g/dL (14.0-18.0); MEAN CORPUSCULAR HEMOGLOBIN 30.4 pg (28.0-32.0); MEAN CORPUSCULAR VOLUME 89.4 fL (80.0-94.0); MEAN PLATELET VOLUME 7.9 fl (7.4-10.4); PLATELET 101 x1000/uL (130-400); RED BLOOD CELL COUNT 2.67 mill/uL (4.7-6.1); RED CELL DISTRIBUTION WIDTH 15.5 % (11.6-14.6)
[2016-10-21] MEDS: ZINC SULFATE 220 MG ( 50 ) CAPSULE PO SCH (08:05)
[2016-10-21] MEDS: FOLIC ACID/VITAMIN B COMP W-C TABLET PO SCH (08:05)
[2016-10-21] MEDS: PANTOPRAZOLE SODIUM 40 MG/VIAL IV SCH (08:05)
[2016-10-21] MEDS: ASCORBIC ACID 250 MG TABLET PO SCH ×2 (08:05→17:50)
[2016-10-21] MEDS: METOPROLOL TARTRATE 25MG TABLET PO SCH ×2 (08:06→20:28)
[2016-10-21] MEDS: AMIODARONE HCL 200 MG TABLET PO SCH (08:06)
[2016-10-21] MEDS: LORAZEPAM 2MG/ML CPJ IV PRN ×2 (08:25→21:50)
[2016-10-21 10:39] LABS: PLATELET ESTIMATE DECREASED
[2016-10-21 12:16] LABS: PLATELET ESTIMATE DECREASED
[2016-10-22] VITALS (12 sets, daily range): BP systolic 109–142; BP diastolic 63–86
[2016-10-22] MEDS: IPRATROPIUM/ALBUTEROL 0.5-3(2.5)MG/3ML NEB HHN SCH ×5 (03:05→21:03)
[2016-10-22] MEDS: LORAZEPAM 2MG/ML CPJ IV PRN ×2 (03:35→17:32)
[2016-10-22] MEDS: MORPHINE SULFATE 4 MG/ML CPJ (NOT FOR IM USE) IV PRN ×3 (03:38→23:52)
[2016-10-22] MEDS: SODIUM CHLORIDE 23.4% 77 MEQ in DEXT 10% WATER 1,000 ML IV SCH (05:29)
[2016-10-22 06:17] LABS: BASOPHILS % 0.1 % (0.0-2.0); EOSINOPHILS % 0.2 % (0.0-5.0); HEMATOCRIT. 32.1 % (42.0-52.0); HEMOGLOBIN. 10.6 g/dL (14.0-18.0); LYMPHOCYTES % 7.4 % (20.0-50.0); MEAN CORPUSCULAR HEMOGLOBIN 30.5 pg (28.0-32.0); MEAN CORPUSCULAR VOLUME 92.1 fL (80.0-94.0); MEAN PLATELET VOLUME 7.7 fl (7.4-10.4); MONOCYTES % 5.7 % (2.0-8.0); NEUTROPHILS % 86.6 % (40.0-76.0); PLATELET 93 x1000/uL (130-400); RED BLOOD CELL COUNT 3.49 mill/uL (4.7-6.1); RED CELL DISTRIBUTION WIDTH 16.1 % (11.6-14.6)
[2016-10-22] MEDS: PANTOPRAZOLE SODIUM 40 MG/VIAL IV SCH (09:17)
[2016-10-22] MEDS: AMIODARONE HCL 200 MG TABLET PO SCH (09:17)
[2016-10-22] MEDS: ZINC SULFATE 220 MG ( 50 ) CAPSULE PO SCH (09:17)
[2016-10-22] MEDS: FOLIC ACID/VITAMIN B COMP W-C TABLET PO SCH (09:18)
[2016-10-22] MEDS: ASCORBIC ACID 250 MG TABLET PO SCH ×2 (09:18→16:47)
[2016-10-22] MEDS: METOPROLOL TARTRATE 25MG TABLET PO SCH ×2 (09:20→20:40)
[2016-10-23] VITALS (18 sets, daily range): BP systolic 84–131; BP diastolic 53–82
[2016-10-23] MEDS: IPRATROPIUM/ALBUTEROL 0.5-3(2.5)MG/3ML NEB HHN SCH ×6 (01:05→20:56)
[2016-10-23] MEDS: LORAZEPAM 2MG/ML CPJ IV PRN ×4 (01:20→23:59)
[2016-10-23 08:20] LABS: BASOPHILS % 0.2 % (0.0-2.0); EOSINOPHILS % 1.9 % (0.0-5.0); HEMATOCRIT. 22.1 % (42.0-52.0); HEMOGLOBIN. 7.4 g/dL (14.0-18.0); LYMPHOCYTES % 7.9 % (20.0-50.0); MEAN CORPUSCULAR HEMOGLOBIN 29.9 pg (28.0-32.0); MEAN CORPUSCULAR VOLUME 88.9 fL (80.0-94.0); MEAN PLATELET VOLUME 8.3 fl (7.4-10.4); MONOCYTES % 3.4 % (2.0-8.0); NEUTROPHILS % 86.6 % (40.0-76.0); PLATELET 96 x1000/uL (130-400); RED BLOOD CELL COUNT 2.48 mill/uL (4.7-6.1); RED CELL DISTRIBUTION WIDTH 15.8 % (11.6-14.6)
[2016-10-23] MEDS: FOLIC ACID/VITAMIN B COMP W-C TABLET PO SCH (09:00)
[2016-10-23] MEDS: ASCORBIC ACID 250 MG TABLET PO SCH ×2 (09:00→17:31)
[2016-10-23] MEDS: METOPROLOL TARTRATE 25MG TABLET PO SCH ×2 (09:00→21:00)
[2016-10-23] MEDS: AMIODARONE HCL 200 MG TABLET PO SCH (09:00)
[2016-10-23] MEDS: ZINC SULFATE 220 MG ( 50 ) CAPSULE PO SCH (09:00)
[2016-10-23] MEDS: PANTOPRAZOLE SODIUM 40 MG/VIAL IV SCH (09:55)
[2016-10-23] MEDS: MORPHINE SULFATE 4 MG/ML CPJ (NOT FOR IM USE) IV PRN (09:56)
[2016-10-23] MEDS: ACETAMINOPHEN 650MG/20.3ML UDC PO PRN (11:13)
[2016-10-23 17:33] LABS: HEMATOCRIT 19.7 % (42.0-52.0); HEMOGLOBIN 6.8 g/dL (14.0-18.0)
[2016-10-24] VITALS (15 sets, daily range): BP systolic 106–159; BP diastolic 64–94
[2016-10-24] MEDS: IPRATROPIUM/ALBUTEROL 0.5-3(2.5)MG/3ML NEB HHN SCH ×7 (00:35→23:38)
[2016-10-24] MEDS: ACETAMINOPHEN 650MG/20.3ML UDC PO PRN (01:00)
[2016-10-24 06:08] LABS: BASOPHILS % 0.2 % (0.0-2.0); EOSINOPHILS % 2.6 % (0.0-5.0); HEMATOCRIT. 28.2 % (42.0-52.0); HEMOGLOBIN. 9.6 g/dL (14.0-18.0); LYMPHOCYTES % 13.2 % (20.0-50.0); MEAN CORPUSCULAR HEMOGLOBIN 30.9 pg (28.0-32.0); MEAN CORPUSCULAR VOLUME 90.6 fL (80.0-94.0); MEAN PLATELET VOLUME 8.4 fl (7.4-10.4); MONOCYTES % 5.9 % (2.0-8.0); NEUTROPHILS % 78.1 % (40.0-76.0); PLATELET 94 x1000/uL (130-400); RED BLOOD CELL COUNT 3.11 mill/uL (4.7-6.1); RED CELL DISTRIBUTION WIDTH 15.2 % (11.6-14.6)
[2016-10-24] MEDS: LORAZEPAM 2MG/ML CPJ IV PRN ×2 (06:20→17:22)
[2016-10-24] MEDS: ZINC SULFATE 220 MG ( 50 ) CAPSULE PO SCH (08:30)
[2016-10-24] MEDS: AMIODARONE HCL 200 MG TABLET PO SCH (08:30)
[2016-10-24] MEDS: PANTOPRAZOLE SODIUM 40 MG/VIAL IV SCH (08:30)
[2016-10-24] MEDS: FOLIC ACID/VITAMIN B COMP W-C TABLET PO SCH (08:30)
[2016-10-24] MEDS: ASCORBIC ACID 250 MG TABLET PO SCH ×2 (08:30→17:21)
[2016-10-24] MEDS: METOPROLOL TARTRATE 25MG TABLET PO SCH ×2 (08:31→21:00)
[2016-10-24] MEDS ORDERED: POTASSIUM CHLORIDE 10MEQ TABLET SR PO NR (09:45)
[2016-10-24] MEDS: MEROPENEM 1000MG in NORMAL SALINE 100ML IV SCH (17:22)
[2016-10-24] MEDS ORDERED: VANCOMYCIN 1 G PREMIX 200 ML IV NR (18:00)
[2016-10-24] MEDS: SODIUM CHLORIDE 23.4% 77 MEQ in DEXT 10% WATER 1,000 ML IV SCH (18:15)
[2016-10-24] MEDS ORDERED: METRONIDAZOLE 500 MG PREMIX 100 ML IV SCH (21:00)
[2016-10-25] VITALS (17 sets, daily range): BP systolic 94–154; BP diastolic 57–98
[2016-10-25] MEDS: LORAZEPAM 2MG/ML CPJ IV PRN ×4 (00:03→17:01)
[2016-10-25] MEDS: IPRATROPIUM/ALBUTEROL 0.5-3(2.5)MG/3ML NEB HHN SCH ×5 (03:28→21:05)
[2016-10-25] MEDS: ZINC SULFATE 220 MG ( 50 ) CAPSULE PO SCH (09:00)
[2016-10-25] MEDS ORDERED: CEFEPIME 1,000 MG in DEXTROSE 5% WATER 50 ML IV SCH (09:00)
[2016-10-25] MEDS: FOLIC ACID/VITAMIN B COMP W-C TABLET PO SCH (09:00)
[2016-10-25] MEDS: AMIODARONE HCL 200 MG TABLET PO SCH (09:00)
[2016-10-25] MEDS: METOPROLOL TARTRATE 25MG TABLET PO SCH ×2 (09:00→22:00)
[2016-10-25] MEDS: ASCORBIC ACID 250 MG TABLET PO SCH ×2 (09:00→17:04)
[2016-10-25] MEDS: PANTOPRAZOLE SODIUM 40 MG/VIAL IV SCH (09:41)
[2016-10-25 10:12] LABS: BASOPHILS % 0.4 % (0.0-2.0); EOSINOPHILS % 4.2 % (0.0-5.0); HEMATOCRIT. 25.6 % (42.0-52.0); HEMOGLOBIN. 8.7 g/dL (14.0-18.0); LYMPHOCYTES % 18.8 % (20.0-50.0); MEAN CORPUSCULAR HEMOGLOBIN 30.6 pg (28.0-32.0); MEAN CORPUSCULAR VOLUME 90.1 fL (80.0-94.0); MEAN PLATELET VOLUME 8.5 fl (7.4-10.4); NEUTROPHILS % 69.6 % (40.0-76.0); PLATELET 102 x1000/uL (130-400); RED BLOOD CELL COUNT 2.84 mill/uL (4.7-6.1); RED CELL DISTRIBUTION WIDTH 15.2 % (11.6-14.6)
[2016-10-25] MEDS: MORPHINE SULFATE 2 MG/ML CPJ (NOT FOR IM USE) IV PRN ×2 (10:35→17:02)
[2016-10-25] MEDS ORDERED: LIDOCAINE HCL 1% 20ML VIAL (Pyxis) INJ ONE (14:40)
[2016-10-25] MEDS ORDERED: LIDOCAINE HCL 2% JELLY 5ML ONE (14:40)
[2016-10-25] MEDS ORDERED: SODIUM BICARBONATE 4% (2.4MEQ) 5ML VIAL IV ONE (14:40)
[2016-10-25] MEDS ORDERED: DIATR MEGLU/DIATRIZOATE SOLN 30ML ONE (15:01)
[2016-10-25] MEDS: MEROPENEM 1000MG in NORMAL SALINE 100ML IV SCH (17:10)
[2016-10-26] VITALS (14 sets, daily range): BP systolic 102–123; BP diastolic 58–79
[2016-10-26] MEDS: IPRATROPIUM/ALBUTEROL 0.5-3(2.5)MG/3ML NEB HHN SCH ×6 (00:17→20:35)
[2016-10-26] MEDS: MORPHINE SULFATE 2 MG/ML CPJ (NOT FOR IM USE) IV PRN ×4 (00:45→21:48)
[2016-10-26] MEDS: AMIODARONE HCL 200 MG TABLET PO SCH (10:02)
[2016-10-26] MEDS: FOLIC ACID/VITAMIN B COMP W-C TABLET PO SCH (10:02)
[2016-10-26] MEDS: ZINC SULFATE 220 MG ( 50 ) CAPSULE PO SCH (10:03)
[2016-10-26] MEDS: LORAZEPAM 2MG/ML CPJ IV PRN ×3 (10:03→21:41)
[2016-10-26] MEDS: ASCORBIC ACID 250 MG TABLET PO SCH ×2 (10:03→17:23)
[2016-10-26] MEDS: METOPROLOL TARTRATE 25MG TABLET PO SCH ×2 (10:03→20:56)
[2016-10-26] MEDS ORDERED: VANCOMYCIN 750 MG PREMIX 150 ML IV SCH (13:00)
[2016-10-26] MEDS: MEROPENEM 1000MG in NORMAL SALINE 100ML IV SCH (17:23)
[2016-10-27] VITALS (12 sets, daily range): BP systolic 95–133; BP diastolic 49–82
[2016-10-27] MEDS: IPRATROPIUM/ALBUTEROL 0.5-3(2.5)MG/3ML NEB HHN SCH ×6 (00:40→20:46)
[2016-10-27] MEDS: LORAZEPAM 2MG/ML CPJ IV PRN ×4 (02:53→17:32)
[2016-10-27] MEDS: MORPHINE SULFATE 2 MG/ML CPJ (NOT FOR IM USE) IV PRN ×5 (02:54→23:52)
[2016-10-27] MEDS: FOLIC ACID/VITAMIN B COMP W-C TABLET PO SCH (08:00)
[2016-10-27] MEDS: METOPROLOL TARTRATE 25MG TABLET PO SCH ×2 (08:00→21:00)
[2016-10-27] MEDS: ASCORBIC ACID 250 MG TABLET PO SCH ×2 (08:00→17:32)
[2016-10-27] MEDS: ZINC SULFATE 220 MG ( 50 ) CAPSULE PO SCH (08:00)
[2016-10-27] MEDS: AMIODARONE HCL 200 MG TABLET PO SCH (08:01)
[2016-10-27] MEDS: DEXTROSE 50% WATER 50ML SYRINGE IV PRN ×3 (12:09→21:19)
[2016-10-27] MEDS: BLOOD SUGAR DIAGNOSTIC STRIP TEST SCH ×2 (17:26→21:10)
[2016-10-27] MEDS ORDERED: AMIKACIN SULFATE 300 MG in SODIUM CHLORIDE 0.9% 100 ML IV NR (20:00)
[2016-10-27] MEDS ORDERED: DEXTROSE 10% WATER 500 ML IV ONE (22:45)
[2016-10-27 23:23] LABS: BASOPHILS % 0.3 % (0.0-2.0); HEMOGLOBIN. 9.1 g/dL (14.0-18.0); LYMPHOCYTES % 13.8 % (20.0-50.0); MEAN CORPUSCULAR HEMOGLOBIN 31.3 pg (28.0-32.0); MEAN CORPUSCULAR VOLUME 89.7 fL (80.0-94.0); MEAN PLATELET VOLUME 8.5 fl (7.4-10.4); MONOCYTES % 4.8 % (2.0-8.0); NEUTROPHILS % 77.1 % (40.0-76.0); PLATELET 99 x1000/uL (130-400); RED BLOOD CELL COUNT 2.89 mill/uL (4.7-6.1); RED CELL DISTRIBUTION WIDTH 15.3 % (11.6-14.6)
[2016-10-27] MEDS ORDERED: DEXT 10% WATER 1,000 ML IV NR (23:30)
[2016-10-28] VITALS (11 sets, daily range): BP systolic 98–128; BP diastolic 55–72
[2016-10-28] MEDS: BLOOD SUGAR DIAGNOSTIC STRIP TEST SCH ×6 (00:12→20:14)
[2016-10-28] MEDS: IPRATROPIUM/ALBUTEROL 0.5-3(2.5)MG/3ML NEB HHN SCH ×7 (00:47→20:28)
[2016-10-28] MEDS: LORAZEPAM 2MG/ML CPJ IV PRN ×3 (05:41→20:52)
[2016-10-28] MEDS: MORPHINE SULFATE 2 MG/ML CPJ (NOT FOR IM USE) IV PRN ×3 (05:42→16:23)
[2016-10-28] MEDS: AMIODARONE HCL 200 MG TABLET PO SCH (08:24)
[2016-10-28] MEDS: ZINC SULFATE 220 MG ( 50 ) CAPSULE PO SCH (08:24)
[2016-10-28] MEDS: ASCORBIC ACID 250 MG TABLET PO SCH ×2 (08:25→17:15)
[2016-10-28] MEDS: METOPROLOL TARTRATE 25MG TABLET PO SCH ×2 (08:25→20:08)
[2016-10-28] MEDS: FOLIC ACID/VITAMIN B COMP W-C TABLET PO SCH (08:25)
[2016-10-28 17:32] LABS: BASOPHILS % 0.4 % (0.0-2.0); EOSINOPHILS % 3.2 % (0.0-5.0); HEMATOCRIT. 26.2 % (42.0-52.0); HEMOGLOBIN. 8.9 g/dL (14.0-18.0); LYMPHOCYTES % 13.4 % (20.0-50.0); MEAN CORPUSCULAR HEMOGLOBIN 30.9 pg (28.0-32.0); MEAN CORPUSCULAR VOLUME 90.7 fL (80.0-94.0); MEAN PLATELET VOLUME 8.4 fl (7.4-10.4); PLATELET 107 x1000/uL (130-400); RED BLOOD CELL COUNT 2.89 mill/uL (4.7-6.1); RED CELL DISTRIBUTION WIDTH 15.3 % (11.6-14.6)
[2016-10-28] MEDS: METRONIDAZOLE 500MG TABLET PO SCH (20:09)
[2016-10-29] VITALS (13 sets, daily range): BP systolic 91–126; BP diastolic 52–75
[2016-10-29] MEDS: IPRATROPIUM/ALBUTEROL 0.5-3(2.5)MG/3ML NEB HHN SCH ×6 (00:35→20:24)
[2016-10-29] MEDS: MORPHINE SULFATE 2 MG/ML CPJ (NOT FOR IM USE) IV PRN ×3 (01:25→21:32)
[2016-10-29] MEDS: BLOOD SUGAR DIAGNOSTIC STRIP TEST SCH ×5 (04:00→22:05)
[2016-10-29] MEDS: LORAZEPAM 2MG/ML CPJ IV PRN ×3 (05:31→18:32)
[2016-10-29] MEDS: METRONIDAZOLE 500MG TABLET PO SCH ×2 (08:57→21:25)
[2016-10-29] MEDS: ASCORBIC ACID 250 MG TABLET PO SCH ×2 (08:57→17:33)
[2016-10-29] MEDS: FOLIC ACID/VITAMIN B COMP W-C TABLET PO SCH (08:57)
[2016-10-29] MEDS: AMIODARONE HCL 200 MG TABLET PO SCH (08:58)
[2016-10-29] MEDS: ZINC SULFATE 220 MG ( 50 ) CAPSULE PO SCH (08:58)
[2016-10-29] MEDS: METOPROLOL TARTRATE 25MG TABLET PO SCH ×2 (08:59→21:25)
[2016-10-29] MEDS ORDERED: SODIUM PHOS,M-BASIC-D-BASIC 15 MM in DEXT 5% WATER 250 ML IV SCH (09:00)
[2016-10-29 10:23] LABS: BASOPHILS % 0.6 % (0.0-2.0); EOSINOPHILS % 2.8 % (0.0-5.0); HEMOGLOBIN. 9.2 g/dL (14.0-18.0); LYMPHOCYTES % 24.1 % (20.0-50.0); MEAN CORPUSCULAR HEMOGLOBIN 31.2 pg (28.0-32.0); MEAN CORPUSCULAR VOLUME 91.1 fL (80.0-94.0); MEAN PLATELET VOLUME 8.2 fl (7.4-10.4); MONOCYTES % 5.6 % (2.0-8.0); NEUTROPHILS % 66.9 % (40.0-76.0); PLATELET 101 x1000/uL (130-400); RED BLOOD CELL COUNT 2.96 mill/uL (4.7-6.1); RED CELL DISTRIBUTION WIDTH 15.2 % (11.6-14.6)
[2016-10-29] MEDS ORDERED: AMIKACIN SULFATE 400 MG in SODIUM CHLORIDE 0.9% 100 ML IV NR (12:00)
[2016-10-29] MEDS ORDERED: DIATR MEGLU/DIATRIZOATE SOLN 30ML PO SCH (14:45)
[2016-10-30] VITALS: BP 90/50
[2016-10-30] MEDS: BLOOD SUGAR DIAGNOSTIC STRIP TEST SCH ×3 (00:29→08:32)
[2016-10-30] MEDS: ACETYLCYSTEINE 100MG/ML 10% VIAL 4ML INH SCH ×2 (00:30→08:47)
[2016-10-30] MEDS: IPRATROPIUM/ALBUTEROL 0.5-3(2.5)MG/3ML NEB HHN SCH ×3 (00:31→08:46)
[2016-10-30 03:00] VITALS: BP 94/55
[2016-10-30 04:01] VITALS: BP 105/57
[2016-10-30] MEDS: DEXTROSE 50% WATER 50ML SYRINGE IV PRN ×2 (04:11→08:24)
[2016-10-30] MEDS: LORAZEPAM 2MG/ML CPJ IV PRN ×2 (04:12→08:24)
[2016-10-30 06:03] VITALS: BP 112/64
[2016-10-30 06:51] LABS: BASOPHILS % 0.3 % (0.0-2.0); EOSINOPHILS % 2.6 % (0.0-5.0); HEMATOCRIT. 24.8 % (42.0-52.0); HEMOGLOBIN. 8.6 g/dL (14.0-18.0); LYMPHOCYTES % 21.7 % (20.0-50.0); MEAN CORPUSCULAR HEMOGLOBIN 31.3 pg (28.0-32.0); MEAN PLATELET VOLUME 8.4 fl (7.4-10.4); NEUTROPHILS % 69.4 % (40.0-76.0); PLATELET 101 x1000/uL (130-400); RED BLOOD CELL COUNT 2.75 mill/uL (4.7-6.1); RED CELL DISTRIBUTION WIDTH 15.1 % (11.6-14.6)
[2016-10-30 08:00] VITALS: BP 133/56
[2016-10-30] MEDS: MORPHINE SULFATE 2 MG/ML CPJ (NOT FOR IM USE) IV PRN (08:31)
[2016-10-30] MEDS: FOLIC ACID/VITAMIN B COMP W-C TABLET PO SCH (08:32)
[2016-10-30] MEDS: METRONIDAZOLE 500MG TABLET PO SCH (08:32)
[2016-10-30] MEDS: ASCORBIC ACID 250 MG TABLET PO SCH (08:32)
[2016-10-30] MEDS: ZINC SULFATE 220 MG ( 50 ) CAPSULE PO SCH (08:32)
[2016-10-30] MEDS: AMIODARONE HCL 200 MG TABLET PO SCH (08:32)
[2016-10-30] MEDS: METOPROLOL TARTRATE 25MG TABLET PO SCH (08:34)
[2016-10-30 08:35] LABS: PHOSPHORUS 4.2 mg/dL (2.5-4.9)
[2016-10-30 10:00] VITALS: BP 142/78
== END 2016-10-30 10:35 | DRG 4 ==
LOC: EDBEDREQTM 23:24 → EDBEDREQ 23:24 → ER 23:41 → 6WST 23:42 → EDBEDREQ 09-06 00:04 → ENRESERV 09-06 09:19 → 6WST 09-06 11:00 → CVICU 09-07 17:47 → 8WST 09-12 17:30 → 3WST 09-14 10:14 → CVICU 09-14 11:07 → 5EST 10-02 17:26 → CVICU 10-09 00:33 → 5EST 10-09 05:14
PROVIDERS: ADMIT Internal Medicine Nephrology; ATTEND Internal Medicine Nephrology
PROC: 5A09357 Assistance with Respiratory Ventilation, Less than 24 Consecutive Hours, Continuous Positive Airway Pressure (ICD-10-PCS; 2016-09-06)
PROC: 5A1D60Z (ICD-10-PCS; 2016-09-06)
PROC: 05H633Z Insertion of Infusion Device into Left Subclavian Vein, Percutaneous Approach (ICD-10-PCS; 2016-09-08)
PROC: B547ZZA Ultrasonography of Left Subclavian Vein, Guidance (ICD-10-PCS; 2016-09-08)
PROC: 30233N1 Transfusion of Nonautologous Red Blood Cells into Peripheral Vein, Percutaneous Approach (ICD-10-PCS; 2016-09-14)
PROC: 0DB68ZX Excision of Stomach, Via Natural or Artificial Opening Endoscopic, Diagnostic (ICD-10-PCS; 2016-09-15)
PROC: 5A1955Z Respiratory Ventilation, Greater than 96 Consecutive Hours (ICD-10-PCS; 2016-09-16)
PROC: 0BH17EZ Insertion of Endotracheal Airway into Trachea, Via Natural or Artificial Opening (ICD-10-PCS; 2016-09-16)
PROC: 30233R1 Transfusion of Nonautologous Platelets into Peripheral Vein, Percutaneous Approach (ICD-10-PCS; 2016-09-21)
PROC: 0B110F4 Bypass Trachea to Cutaneous with Tracheostomy Device, Open Approach (ICD-10-PCS; 2016-09-24)
PROC: 0GBG0ZZ Excision of Left Thyroid Gland Lobe, Open Approach (ICD-10-PCS; 2016-09-24)
PROC: 0BJ08ZZ Inspection of Tracheobronchial Tree, Via Natural or Artificial Opening Endoscopic (ICD-10-PCS; 2016-09-25)
PROC: 30233L1 Transfusion of Nonautologous Fresh Plasma into Peripheral Vein, Percutaneous Approach (ICD-10-PCS; 2016-09-25)
PROC: 30233K1 Transfusion of Nonautologous Frozen Plasma into Peripheral Vein, Percutaneous Approach (ICD-10-PCS; 2016-09-25)
PROC: 0DH60UZ Insertion of Feeding Device into Stomach, Open Approach (ICD-10-PCS; 2016-10-17)
PROC: 0DN60ZZ Release Stomach, Open Approach (ICD-10-PCS; principal; 2016-10-17 07:30)
PROC: 0D20XUZ Change Feeding Device in Upper Intestinal Tract, External Approach (ICD-10-PCS; 2016-10-25)
DX: A41.59 Other Gram-negative sepsis (principal); I50.23 Acute on chronic systolic (congestive) heart failure; G93.41 Metabolic encephalopathy; E43 Unspecified severe protein-calorie malnutrition; J18.9 Pneumonia, unspecified organism; R57.1 Hypovolemic shock; R65.21 Severe sepsis with septic shock; J96.20 Acute and chronic respiratory failure, unspecified whether with hypoxia or hypercapnia; A04.7 Enterocolitis due to Clostridium difficile; N18.6 End stage renal disease; D68.9 Coagulation defect, unspecified; E87.2 Acidosis; G82.20 Paraplegia, unspecified; I42.9 Cardiomyopathy, unspecified; E11.22 Type 2 diabetes mellitus with diabetic chronic kidney disease; E11.51 Type 2 diabetes mellitus with diabetic peripheral angiopathy without gangrene; D69.6 Thrombocytopenia, unspecified; K92.2 Gastrointestinal hemorrhage, unspecified; I13.2 Hypertensive heart and chronic kidney disease with heart failure and with stage 5 chronic kidney disease, or end stage renal disease; K66.0 Peritoneal adhesions (postprocedural) (postinfection); D63.8 Anemia in other chronic diseases classified elsewhere; K29.70 Gastritis, unspecified, without bleeding; G40.909 Epilepsy, unspecified, not intractable, without status epilepticus; K44.9 Diaphragmatic hernia without obstruction or gangrene; E87.1 Hypo-osmolality and hyponatremia; N39.0 Urinary tract infection, site not specified; E07.81 Sick-euthyroid syndrome; E83.39 Other disorders of phosphorus metabolism; E87.6 Hypokalemia; E87.5 Hyperkalemia; B95.62 Methicillin resistant Staphylococcus aureus infection as the cause of diseases classified elsewhere; K21.9 Gastro-esophageal reflux disease without esophagitis; B96.5 Pseudomonas (aeruginosa) (mallei) (pseudomallei) as the cause of diseases classified elsewhere; I48.0 Paroxysmal atrial fibrillation; M60.9 Myositis, unspecified; I47.1 Supraventricular tachycardia; R13.10 Dysphagia, unspecified; Z16.24 Resistance to multiple antibiotics; Z99.2 Dependence on renal dialysis; Z93.3 Colostomy status; Z99.11 Dependence on respirator [ventilator] status; Z68.38 Body mass index [BMI] 38.0-38.9, adult; Z79.899 Other long term (current) drug therapy; Z89.611 Acquired absence of right leg above knee; Z89.612 Acquired absence of left leg above knee
CPT/HCPCS: 36415; 36569; 36600; 49450; 71010; 74000; 76937; 78278; 78580; 80048; 80053; 80061; 80150; 80202; 81001; 82140; 82270; 82375; 82550; 82553; 82805; 82962; 83036; 83605; 83690; 83735; 83880; 83930; 84100; 84132; 84439; 84443; 84478; 84484; 85014; 85018; 85025; 85027; 85049; 85379; 85610; 85730; 86705; 86709; 86803; 86850; 86900; 86920; 86927; 86945; 87040; 87070; 87077; 87086; 87186; 87205; 87340; 87493; 88305; 88313; 93005; 93306; 93971; 94002; 94003; 94640; 94660; 96365; 96375; 97163; 99285; A4216; A6261; A9560; C1725; C1769; C9113; J0278; J0282; J0690; J0692; J0696; J0770; J0885; J1160; J1170; J1200; J1650; J1720; J1815; J1956; J2060; J2185; J2250; J2270; J2354; J2370; J2405; J2704; J2765; J3010; J3370; J3480; J3490; J7030; J7040; J7042; J7050; J7060; J7070; J7131; J7608; J7620; P9016; P9017; P9021; P9034; Q9963